=== PATIENT | female | born 1935 | race Caucasian/White ===

== ENCOUNTER 2016-10-16 15:00 | Outpatient (CLI) | payer MEDICARE, MEDICAID | END 2016-10-16 15:01 | disposition home or self-care (01) | DX: I10 Essential (primary) hypertension (principal); E03.9 Hypothyroidism, unspecified ==

== ENCOUNTER 2016-11-12 15:10 | Outpatient (CLI) | payer MEDICARE, MEDICAID | END 2016-11-12 15:11 | disposition home or self-care (01) | DX: R79.1 Abnormal coagulation profile (principal); R68.89 Other general symptoms and signs ==

== ENCOUNTER 2017-01-24 18:45 | Outpatient (CLI) | payer MEDICARE, MEDICAID ==
[2017-01-24 21:19] LABS: THYROID STIMULATING HORMONE 1.3 uIU/mL (0.34-5.60)
== END 2017-01-24 18:46 | disposition home or self-care (01) ==
LOC: LAB.R 18:45
DX: Z13.29 Encounter for screening for other suspected endocrine disorder (principal)
CPT/HCPCS: 84439; 84443

== ENCOUNTER 2017-08-13 08:00 | Outpatient (CLI) | payer MEDICARE, MEDICAID ==
[2017-08-13 16:45] LABS: HGB - HEMOGLOBIN 13.2 g/dL (12.0-16.0); MEAN CORPUSCULAR HEMOGLOBIN 27.9 pg (27.0-31.0); MEAN CORPUSCULAR HGB CONC 32.2 g/dL (32.0-36.0); MEAN CORPUSCULAR VOLUME 86.6 fL (81.0-99.0); MEAN PLATELET VOLUME 8.1 fL (7.9-10.8); RED BLOOD COUNT 4.75 10^6/uL (4.20-5.40); RED CELL DISTRIBUTION WIDTH 13.6 % (12.0-15.0); WHITE BLOOD COUNT 7.5 x10^3/uL (4.8-10.8)
[2017-08-13 16:51] LABS: CALCIUM 9.2 mg/dL (8.5-10.3); CREATININE 0.8 mg/dL (0.4-1.0)
== END 2017-08-13 08:01 | disposition home or self-care (01) ==
LOC: LAB.R 08:00
DX: E87.6 Hypokalemia (principal); E11.65 Type 2 diabetes mellitus with hyperglycemia
CPT/HCPCS: 80048

== ENCOUNTER 2018-01-12 16:50 | Outpatient (CLI) | payer MEDICARE, MEDICAID ==
[2018-01-12 19:49] LABS: BASOPHILS % (AUTO) 0.7 %; EOSINOPHILS # (AUTO) 0.2 10^3/uL (0.0-0.7); EOSINOPHILS % (AUTO) 2.9 %; HGB - HEMOGLOBIN 12.5 g/dL (12.0-16.0); LYMPHOCYTES # (AUTO) 1.4 10^3/uL (1.5-3.5); LYMPHOCYTES % (AUTO) 20.3 %; MEAN CORPUSCULAR HEMOGLOBIN 28.1 pg (27.0-31.0); MEAN CORPUSCULAR HGB CONC 32.4 g/dL (32.0-36.0); MEAN CORPUSCULAR VOLUME 86.5 fL (81.0-99.0); MEAN PLATELET VOLUME 8.2 fL (7.9-10.8); MONOCYTES # (AUTO) 0.5 10^3/uL (0.0-1.0); MONOCYTES % (AUTO) 6.7 %; NEUTROPHILS # (AUTO) 4.7 10^3/uL (1.5-6.6); NEUTROPHILS % (AUTO) 69.4 %; PLT - PLATELET COUNT 374 10^3/uL (130-450); RED BLOOD COUNT 4.44 10^6/uL (4.20-5.40); RED CELL DISTRIBUTION WIDTH 13.7 % (12.0-15.0); WHITE BLOOD COUNT 6.8 x10^3/uL (4.8-10.8)
[2018-01-12 19:54] LABS: ALBUMIN 3.9 g/dL (3.2-5.5); ALBUMIN/GLOBULIN RATIO 1.1 (1.0-2.2); BILIRUBIN,TOTAL 0.7 mg/dL (0.2-1.0); CALCIUM 9.1 mg/dL (8.5-10.3); CREATININE 0.9 mg/dL (0.4-1.0); TOTAL PROTEIN 7.3 g/dL (6.7-8.2)
[2018-01-12 20:11] LABS: HB2 TOTAL 13.2 g/dL; HEMOGLOBIN A1C 0.49 g/dL; HEMOGLOBIN A1C % 5.5 % (4.6-6.2)
== END 2018-01-12 16:51 | disposition home or self-care (01) ==
LOC: LAB.R 16:50
DX: I10 Essential (primary) hypertension (principal); E11.9 Type 2 diabetes mellitus without complications; E03.9 Hypothyroidism, unspecified
CPT/HCPCS: 80053; 83036; 84443; 85025

== ENCOUNTER 2018-06-12 14:25 | Outpatient (CLI) | payer MEDICARE, MEDICAID ==
[2018-06-12 15:17] LABS: BASOPHILS % (AUTO) 0.5 %; EOSINOPHILS # (AUTO) 0.1 10^3/uL (0.0-0.7); EOSINOPHILS % (AUTO) 1.7 %; HGB - HEMOGLOBIN 12.6 g/dL (12.0-16.0); LYMPHOCYTES # (AUTO) 1.1 10^3/uL (1.5-3.5); LYMPHOCYTES % (AUTO) 17.2 %; MEAN CORPUSCULAR HEMOGLOBIN 28.8 pg (27.0-31.0); MEAN CORPUSCULAR HGB CONC 34.1 g/dL (32.0-36.0); MEAN CORPUSCULAR VOLUME 84.7 fL (81.0-99.0); MEAN PLATELET VOLUME 8.2 fL (7.9-10.8); MONOCYTES # (AUTO) 0.4 10^3/uL (0.0-1.0); MONOCYTES % (AUTO) 5.8 %; NEUTROPHILS # (AUTO) 4.8 10^3/uL (1.5-6.6); NEUTROPHILS % (AUTO) 74.8 %; PLT - PLATELET COUNT 335 10^3/uL (130-450); RED BLOOD COUNT 4.38 10^6/uL (4.20-5.40); RED CELL DISTRIBUTION WIDTH 14.1 % (12.0-15.0); WHITE BLOOD COUNT 6.4 x10^3/uL (4.8-10.8)
[2018-06-12 15:36] LABS: CREATININE 0.8 mg/dL (0.4-1.0)
== END 2018-06-12 14:26 ==
LOC: LAB.R 14:25
DX: E87.6 Hypokalemia (principal); D50.8 Other iron deficiency anemias
CPT/HCPCS: 80048; 82728; 85025

== ENCOUNTER 2018-08-26 08:00 | Outpatient (CLI) | payer MEDICARE, MEDICAID ==
[2018-08-26 16:38] LABS: BASOPHILS % (AUTO) 0.6 %; EOSINOPHILS # (AUTO) 0.1 10^3/uL (0.0-0.7); EOSINOPHILS % (AUTO) 1.7 %; HGB - HEMOGLOBIN 12.9 g/dL (12.0-16.0); LYMPHOCYTES # (AUTO) 1.1 10^3/uL (1.5-3.5); LYMPHOCYTES % (AUTO) 14.8 %; MEAN CORPUSCULAR HEMOGLOBIN 28.4 pg (27.0-31.0); MONOCYTES # (AUTO) 0.5 10^3/uL (0.0-1.0); MONOCYTES % (AUTO) 6.2 %; NEUTROPHILS # (AUTO) 5.7 10^3/uL (1.5-6.6); NEUTROPHILS % (AUTO) 76.7 %; PLT - PLATELET COUNT 333 10^3/uL (130-450); RED BLOOD COUNT 4.55 10^6/uL (4.20-5.40); RED CELL DISTRIBUTION WIDTH 13.8 % (12.0-15.0); WHITE BLOOD COUNT 7.4 x10^3/uL (4.8-10.8)
== END 2018-08-26 23:59 | disposition home or self-care (01) ==
LOC: LAB.R 08:00
PROVIDERS: ATTEND Family Medicine
DX: E61.1 Iron deficiency (principal); R68.89 Other general symptoms and signs
CPT/HCPCS: 84443; 85025

== ENCOUNTER 2018-09-25 08:00 | Outpatient (CLI) | payer MEDICARE, MEDICAID | END 2018-09-25 23:59 | disposition home or self-care (01) | LOC: LAB.R 08:00 | DX: D50.9 Iron deficiency anemia, unspecified (principal) | CPT/HCPCS: 82728 ==

== ENCOUNTER 2018-12-21 08:00 | Outpatient (CLI) | payer MEDICARE, MEDICAID ==
[2018-12-21 18:04] LABS: CALCIUM 9.3 mg/dL (8.5-10.3); CREATININE 0.6 mg/dL (0.4-1.0)
== END 2018-12-21 23:59 | disposition home or self-care (01) ==
LOC: LAB.R 08:00
DX: F03.91 Unspecified dementia, unspecified severity, with behavioral disturbance (principal); E61.1 Iron deficiency
CPT/HCPCS: 80048; 82728

== ENCOUNTER 2019-04-08 16:26 | Outpatient (CLI) | payer MEDICARE, MEDICAID | END 2019-04-08 16:27 | disposition critical access hospital (66) | LOC: EMS 16:26 | PROVIDERS: ATTEND Surgery | DX: R21 Rash and other nonspecific skin eruption (principal) ==

== ENCOUNTER 2019-04-08 16:33 | Emergency (ER) | payer MEDICARE, MEDICAID ==
[2019-04-08] MEDS ORDERED: valACYclovir 500 MG TABLET PO STA (16:39)
--- NOTE | 2019-04-08 16:41 | ED Physician Documentation ---
History of Present Illness - Stated complaint Stated Complaint: FEM - History obtained from History obtained from: Patient, EMS (Most of the history is from the handoff from the correction and the paramedics. The patient is pretty demented.) - History of Present Illness Timing: Last night (Develops a somewhat painful rash in the left sided elsi-area and buttock. No reported fevers. She has a history of type 2 diabetes.) Review of Systems Unable to obtain: Confused, Dementia PD PAST MEDICAL HISTORY - Past Medical History Cardiovascular: Hypertension Endocrine/Autoimmune: Type 2 diabetes, HyPOthyroidism GI: GERD : Incontinence HEENT: None Psych: Anxiety Musculoskeletal: Osteoarthritis - Past Surgical History Past Surgical History: Yes - Present Medications Home Medications: Ambulatory Orders Medication Instructions Recorded Confirmed Aspirin 81 mg PO 07/08/13 01/04/15 Benazepril HCl 20 mg PO 07/08/13 01/04/15 Calcium Carbonate [Calcium] 500 mg PO 07/08/13 01/04/15 Citalopram [CeleXA] 20 mg PO DAILY 07/08/13 01/04/15 Gabapentin [Neurontin] 300 mg PO 07/08/13 01/04/15 HYDROcod/ACETAM 5/325 [Vicodin 1 each PO 07/08/13 01/04/15 5/325] Ibuprofen 200 mg PO 07/08/13 01/04/15 LORazepam [Ativan] 0.5 mg PO ONCE 07/08/13 01/04/15 Levothyroxine Sodium [Tirosint] 75 mcg PO 07/08/13 01/04/15 Lovastatin [Mevacor] 80 mg PO 07/08/13 01/04/15 Melatonin 3 mg PO 07/08/13 01/04/15 Olanzapine [Olanzapine Odt] 5 mg PO 07/08/13 01/04/15 Potassium Chloride 20 meq PO 07/08/13 01/04/15 traZODone [Desyrel] 50 mg PO HS 07/08/13 01/04/15 Valacyclovir HCl [Valtrex] 1,000 mg PO TID #30 tablet 04/08/19 - Allergies Allergies/Adverse Reactions: Allergies Allergy/AdvReac Type Severity Reaction Status Date / Time No Known Drug Allergies Allergy Verified 07/24/14 20:51 - Social History Does the pt smoke?: No Smoking Status: Never smoker Does the pt drink ETOH?: No Does the pt have substance abuse?: No - Immunizations Immunizations are current?: Yes - POLST Patient has POLST: Yes POLST Status: DNR PD ED PE NORMAL - Vitals Vital signs reviewed: Yes - General General: Other (She is oriented to person only) - Extremities Extremities: Other (She has a clear case of shingles that involves the left perirectal area and left labia) - Neuro Neuro: painter spray 2-12 intact Eye Opening: Spontaneous Motor: Obeys Commands Verbal: Confused GCS Score: 14 Results - Vitals Vitals: Oxygen O2 Source Room air Departure - Departure Disposition: Home, Self Care Clinical Impression: Shingles Qualifiers: Herpes zoster complications: without complications Qualified Code(s): B02.9 - Zoster without complications Condition: Good Record reviewed to determine appropriate education?: Yes Instructions: ED Shingles Prescriptions: Valacyclovir HCl [Valtrex] 1,000 mg PO TID #30 tablet Comments: She has a clear case of shingles on the left side. I am not giving her steroids because of the history of diabetes. The antiviral medication will help it go away faster. Return for new worsening symptoms.
[2019-04-08 16:55] VITALS: BP 138/76
== END 2019-04-08 16:53 | disposition home or self-care (01) ==
LOC: EDUNIT# → ED 16:33
DX: B02.9 Zoster without complications (principal); E11.9 Type 2 diabetes mellitus without complications; I10 Essential (primary) hypertension; F03.90 Unspecified dementia, unspecified severity, without behavioral disturbance, psychotic disturbance, mood disturbance, and anxiety
CPT/HCPCS: 99281; 99283; A9270

== ENCOUNTER 2019-04-08 16:50 | Outpatient (CLI) | payer MEDICARE, MEDICAID | END 2019-04-08 16:51 | disposition home or self-care (01) | LOC: EMS 16:50 | PROVIDERS: ATTEND Surgery | DX: B02.9 Zoster without complications (principal); F03.90 Unspecified dementia, unspecified severity, without behavioral disturbance, psychotic disturbance, mood disturbance, and anxiety | CPT/HCPCS: A0425; A0428; A0429 ==

== ENCOUNTER 2019-04-17 08:00 | Outpatient (CLI) | payer MEDICARE, MEDICAID ==
[2019-04-17 15:27] LABS: BILIRUBIN,URINE NEGATIVE (NEGATIVE); GLUCOSE, URINE (UA) NEGATIVE (NEGATIVE); KETONES,URINE (UA) NEGATIVE (NEGATIVE); LEUKOCYTE ESTERASE, URINE NEGATIVE (NEGATIVE); NITRITE,URINE NEGATIVE (NEGATIVE); OCCULT BLOOD,URINE NEGATIVE (NEGATIVE); PH,URINE 5.5 PH (5.0-7.5); PROTEIN,URINE NEGATIVE (NEGATIVE); UROBILINOGEN,URINE 0.2 (NORMAL) E.U./dL (NORMAL)
[2019-04-17 15:32] LABS: CLARITY,URINE CLEAR (CLEAR)
== END 2019-04-17 23:59 ==
LOC: LAB.R 08:00
PROVIDERS: ATTEND Family Medicine
DX: N39.0 Urinary tract infection, site not specified (principal)
CPT/HCPCS: 81001; 81003; 87086

== ENCOUNTER 2019-04-28 10:20 | Outpatient (CLI) | payer MEDICARE, MEDICAID ==
[2019-04-28 10:38] LABS: KETONES,URINE (UA) NEGATIVE (NEGATIVE); OCCULT BLOOD,URINE NEGATIVE (NEGATIVE)
[2019-04-28 10:49] LABS: BILIRUBIN,URINE NEGATIVE (NEGATIVE); CLARITY,URINE SL. CLOUDY (CLEAR); ICTOTEST,URINE NEGATIVE
[2019-04-28 10:50] LABS: BACTERIA,URINE Moderate /HPF (None Seen); RBC,URINE 0-5 /HPF (0-5); SQUAMOUS EPITHELIAL CELL,UR RARE Squamous (<= Few)
[2019-04-28 10:52] LABS: CASTS, URINE 6-10 Hyaline Casts /LPF
== END 2019-04-28 23:59 | disposition home or self-care (01) ==
LOC: LAB.R 10:20
DX: N39.0 Urinary tract infection, site not specified (principal)
CPT/HCPCS: 81001; 81003; 87086; 87181

== ENCOUNTER 2019-05-04 08:00 | Outpatient (CLI) | payer MEDICARE, MEDICAID ==
[2019-05-04 23:03] LABS: BASOPHILS % (AUTO) 0.4 %; EOSINOPHILS # (AUTO) 0.2 10^3/uL (0.0-0.7); EOSINOPHILS % (AUTO) 1.9 %; HGB - HEMOGLOBIN 12.6 g/dL (12.0-16.0); LYMPHOCYTES # (AUTO) 1.1 10^3/uL (1.5-3.5); LYMPHOCYTES % (AUTO) 12.8 %; MEAN CORPUSCULAR HGB CONC 31.9 g/dL (32.0-36.0); MEAN PLATELET VOLUME 10.3 fL (7.9-10.8); MONOCYTES # (AUTO) 0.8 10^3/uL (0.0-1.0); MONOCYTES % (AUTO) 9.3 %; NEUTROPHILS # (AUTO) 6.4 10^3/uL (1.5-6.6); NEUTROPHILS % (AUTO) 75.2 %; PLT - PLATELET COUNT 275 10^3/uL (130-450); RED BLOOD COUNT 4.34 10^6/uL (4.20-5.40); RED CELL DISTRIBUTION WIDTH 14.3 % (12.0-15.0); WHITE BLOOD COUNT 8.5 x10^3/uL (4.8-10.8)
[2019-05-04 23:14] LABS: ALBUMIN 3.8 g/dL (3.2-5.5); ALBUMIN/GLOBULIN RATIO 1.4 (1.0-2.2); BILIRUBIN,TOTAL 1.9 mg/dL (0.2-1.0); CALCIUM 9.2 mg/dL (8.5-10.3); CREATININE 1.5 mg/dL (0.4-1.0); TOTAL PROTEIN 6.5 g/dL (6.7-8.2)
== END 2019-05-04 23:59 | disposition home or self-care (01) ==
LOC: LAB.R 08:00
PROVIDERS: ATTEND Family Medicine
DX: E61.1 Iron deficiency (principal); E87.6 Hypokalemia
CPT/HCPCS: 80053; 85025

== ENCOUNTER 2019-05-08 10:29 | Outpatient (CLI) | payer MEDICARE, MEDICAID | END 2019-05-08 10:30 | disposition critical access hospital (66) | LOC: EMS 10:29 | PROVIDERS: ATTEND Surgery | DX: R41.0 Disorientation, unspecified (principal); K92.0 Hematemesis; K92.1 Melena | CPT/HCPCS: A0425; A0429 ==

== ENCOUNTER 2019-05-08 10:34 | Observation (INO) | payer MEDICARE, MEDICAID ==
--- NOTE | 2019-05-08 11:15 | ED Physician Documentation ---
PD HPI GI BLEED - Stated complaint Stated Complaint: INCREASED CONFUSION - Chief complaint Chief Complaint: Neuro - History obtained from History obtained from: Patient - History of Present Illness Timing - onset: Yesterday Timing - duration: Days (08/02) Timing - details: Abrupt onset (Noted yesterday to have vomiting a couple of times with some coffee-ground type appearance. She also had bowel movement of dark stool yesterday and again overnight. She seemed more confused and sleepier than usual. No fever or belly pain was noted on the nursing notes. Her [facility] notes that came with her show a recent positive urine culture from May 01 but no antibiotics on her SEP.) Associated symptoms: Coffee ground emesis, Black/tarry stool Contributing factors: No: Recent antibiotics, NSAID use, Anticoagulated Similar symptoms before: Has not had sx before Review of Systems Unable to obtain: Dementia, Other (info from [facility] notes) Constitutional: denies: Fever Cardiac: denies: Chest pain / pressure Respiratory: denies: Cough GI: reports: Hematemesis, Bloody / black stool. denies: Abdominal Pain : reports: Incontinent Neurologic: reports: Generalized weakness, Confused, Altered mental status (sleepy this morning; more confused) PD PAST MEDICAL HISTORY - Past Medical History Cardiovascular: Hypertension Endocrine/Autoimmune: Type 2 diabetes, HyPOthyroidism GI: GERD : Incontinence HEENT: None Psych: Anxiety Musculoskeletal: Osteoarthritis - Past Surgical History Past Surgical History: Yes - Present Medications Home Medications: Ambulatory Orders Medication Instructions Recorded Confirmed Aspirin 81 mg PO 07/08/13 01/04/15 Benazepril HCl 20 mg PO 07/08/13 01/04/15 Calcium Carbonate [Calcium] 500 mg PO 07/08/13 01/04/15 Citalopram [CeleXA] 20 mg PO DAILY 07/08/13 01/04/15 Gabapentin [Neurontin] 300 mg PO 07/08/13 01/04/15 HYDROcod/ACETAM 5/325 [Vicodin 1 each PO 07/08/13 01/04/15 5/325] Ibuprofen 200 mg PO 07/08/13 01/04/15 LORazepam [Ativan] 0.5 mg PO ONCE 07/08/13 01/04/15 Levothyroxine Sodium [Tirosint] 75 mcg PO 07/08/13 01/04/15 Lovastatin [Mevacor] 80 mg PO 07/08/13 01/04/15 Melatonin 3 mg PO 07/08/13 01/04/15 Olanzapine [Olanzapine Odt] 5 mg PO 07/08/13 01/04/15 Potassium Chloride 20 meq PO 07/08/13 01/04/15 traZODone [Desyrel] 50 mg PO HS 07/08/13 01/04/15 Valacyclovir HCl [Valtrex] 1,000 mg PO TID #30 tablet 04/08/19 - Allergies Allergies/Adverse Reactions: Allergies Allergy/AdvReac Type Severity Reaction Status Date / Time No Known Drug Allergies Allergy Verified 07/24/14 20:51 - Social History Does the pt smoke?: No Smoking Status: Never smoker Does the pt drink ETOH?: No Does the pt have substance abuse?: No - Immunizations Immunizations are current?: Yes - POLST Patient has POLST: Yes POLST Status: DNR PD ED PE NORMAL - Vitals Vital signs reviewed: Yes - General General: No acute distress, Well developed/nourished. No: Alert and oriented X 3 (oriented to person, sleepy but rousable to verbal and light tactile. ) - HEENT HEENT: Pharynx benign. No: Moist mucous membranes - Neck Neck: Supple, no meningeal sign, No adenopathy - Cardiac Cardiac: RRR, No murmur - Respiratory Respiratory: Clear bilaterally - Abdomen Abdomen: Normal bowel sounds, Soft, Non tender, Non distended - Female Female : Deferred - Rectal Rectal: Other (there is dark stool at anus externally which tests guiac positive. ) - Back Back: No CVA TTP - Derm Derm: Normal color, Warm and dry - Extremities Extremities: No tenderness to palpate, No edema, No calf tenderness / cord - Neuro Neuro: Alert and oriented X 3, No motor deficit, Normal speech Eye Opening: To Voice Motor: Obeys Commands Verbal: Confused GCS Score: 13 Results - Vitals Vitals: Vital Signs - 24 hr 05/08/19 05/08/19 05/08/19 10:30 10:57 12:58 Temperature 36.4 C L 36.3 C L Heart Rate 64 66 65 Respiratory 14 14 16 Rate Blood Pressure 102/60 106/59 L 133/62 H O2 Saturation 97 97 98 Oxygen O2 Source Room air - Labs Labs: Laboratory Tests 05/08/19 05/08/19 05/08/19 11:55 11:55 11:55 WBC 9.7 RBC 4.33 Hgb 12.7 Hct 39.7 MCV 91.7 MCH 29.3 MCHC 32.0 RDW 14.2 Plt Count 286 MPV 10.1 Neut # (Auto) 7.9 H Lymph # (Auto) 0.9 L [place] # (Auto) 0.7 Eos # (Auto) 0.1 Baso # (Auto) 0.1 Absolute Nucleated RBC 0.00 Nucleated RBC % 0.0 Sodium 141 Potassium 4.0 Chloride 103 Carbon Dioxide 27 Anion Gap 11.0 BUN 35 H Creatinine 1.1 H Estimated GFR (MDRD) 47 L Glucose 85 Lactic Acid Calcium 9.2 Magnesium 2.2 Total Bilirubin 1.7 H AST 19 ALT 26 Alkaline Phosphatase 61 Ammonia Total Protein 6.5 L Albumin 3.6 Globulin 2.9 Albumin/Globulin Ratio 1.2 Lipase 46 Blood Type B NEGATIVE Antibody Screen NEGATIVE 05/08/19 05/08/19 11:55 11:55 WBC RBC Hgb Hct MCV MCH MCHC RDW Plt Count MPV Neut # (Auto) Lymph # (Auto) [place] # (Auto) Eos # (Auto) Baso # (Auto) Absolute Nucleated RBC Nucleated RBC % Sodium Potassium Chloride Carbon Dioxide Anion Gap BUN Creatinine Estimated GFR (MDRD) Glucose Lactic Acid 1.0 Calcium Magnesium Total Bilirubin AST ALT Alkaline Phosphatase Ammonia < 10.0 Total Protein Albumin Globulin Albumin/Globulin Ratio Lipase Blood Type Antibody Screen PD MEDICAL DECISION MAKING - ED course Complexity details: reviewed results (Blood count is good. Her blood pressure was initially slightly low at 102 systolic and is improved with IV fluids. She is given famotidine IV. She does not have any belly tenderness. She had had a untreated UTI from a culture on the first without any antibiotics on her SEP. We will start ceftriaxone IV.), re-evaluated patient (She is more easily arousable and attentive though still confused and disoriented consistent with dementia after IV fluids. She does seem stable.), considered differential, d/w patient Departure - Departure Disposition: [facility] DC/Xfer Clinical Impression: Altered mental status Qualifiers: Altered mental status type: somnolence Qualified Code(s): R40.0 - Somnolence UTI (urinary tract infection) Qualifiers: Urinary tract infection type: acute cystitis Hematuria presence: without hematuria Qualified Code(s): N30.00 - Acute cystitis without hematuria GI bleed Qualifiers: GI bleed type/associated pathology: unspecified gastrointestinal hemorrhage type Qualified Code(s): K92.2 - Gastrointestinal hemorrhage, unspecified Condition: Stable Record reviewed to determine appropriate education?: Yes
[2019-05-08] MEDS ORDERED: SODIUM CHLORIDE 0.9% 1,000 ML IV ONE (11:36)
[2019-05-08] MEDS ORDERED: FAMOTIDINE 20 MG/2 ML VIAL IVP STA (11:37)
[2019-05-08 12:06] LABS: BASOPHILS # (AUTO) 0.1 10^3/uL (0.0-0.1); BASOPHILS % (AUTO) 0.5 %; EOSINOPHILS # (AUTO) 0.1 10^3/uL (0.0-0.7); EOSINOPHILS % (AUTO) 1.2 %; HGB - HEMOGLOBIN 12.7 g/dL (12.0-16.0); LYMPHOCYTES # (AUTO) 0.9 10^3/uL (1.5-3.5); LYMPHOCYTES % (AUTO) 9.4 %; MEAN CORPUSCULAR HEMOGLOBIN 29.3 pg (27.0-31.0); MEAN CORPUSCULAR VOLUME 91.7 fL (81.0-99.0); MEAN PLATELET VOLUME 10.1 fL (7.9-10.8); MONOCYTES # (AUTO) 0.7 10^3/uL (0.0-1.0); MONOCYTES % (AUTO) 6.7 %; NEUTROPHILS # (AUTO) 7.9 10^3/uL (1.5-6.6); NEUTROPHILS % (AUTO) 81.7 %; PLT - PLATELET COUNT 286 10^3/uL (130-450); RED BLOOD COUNT 4.33 10^6/uL (4.20-5.40); RED CELL DISTRIBUTION WIDTH 14.2 % (12.0-15.0); WHITE BLOOD COUNT 9.7 x10^3/uL (4.8-10.8)
[2019-05-08 12:20] LABS: ALBUMIN 3.6 g/dL (3.2-5.5); ALBUMIN/GLOBULIN RATIO 1.2 (1.0-2.2); BILIRUBIN,TOTAL 1.7 mg/dL (0.2-1.0); CALCIUM 9.2 mg/dL (8.5-10.3); CREATININE 1.1 mg/dL (0.4-1.0); MAGNESIUM 2.2 mg/dL (1.7-2.8); TOTAL PROTEIN 6.5 g/dL (6.7-8.2)
[2019-05-08] MEDS ORDERED: cefTRIAXone 1 GM VIAL IVP STA (12:40)
[2019-05-08] MEDS ORDERED: ONDANSETRON 4 MG/2 ML VIAL IVP PRN (14:20)
[2019-05-08] MEDS ORDERED: ACETAMINOPHEN 325 MG TABLET PO PRN (14:20)
[2019-05-08] MEDS ORDERED: LORazepam 1 MG TABLET PO STA (14:46)
[2019-05-08] MEDS ORDERED: HALOPERIDOL 5 MG/ML VIAL IM ONE (15:10)
--- NOTE | 2019-05-08 15:23 | HISTORY & PHYSICAL EXAMINATION ---
Chief Complaint - Chief Complaint Chief Complaint: AMS/confused History of Present Illness - History of Present Illness HPI Comment/Other: Ms. Carballo is 83 yrs female with a PMH significant for advanced dementia, HTN, hypothyroidism, GERD, incontinency, anxiety, osteoarthritis, who present ER from [facility] for confused and altered mental status. Pt is still very confused and agitated. pt pulled her IV port twice in ER. pt could not provide any medical history. From ER provider provider information, yesterday in [facility] pt had an abrupt onset vomiting of some coffee-ground type appearance residence and She also had bowel movement of dark stool overnight. She was reported to have seemed more confused and sleepier than usual. Per ER provider reported, from pt's [facility] notes which came with her it shows pt had a recent positive urine culture of Ecoli on 04/28/19 but pt had no antibiotics on her SEP. Pt's HGB is 12.7 now and It has been stable since 2016. Pt denies chest pain, abdominal pain " I do not need any medication, and I am fine." Initially pt's BP was 102/60, now she is hemodynamic stable. I called Dr. Janusz Milan to consult for pt's GI bleed. Per Dr. Milan's suggestion, since pt's HGB is stable, pt took Aspirin, and pt is advanced dementia, confused, let's treat pt for gastric ulcer with PPI, continue H&H to monitor pt, will consult with him as needed. Pt had PLOST which stated pt is DNR/DNI and comfortable measure only status. pt's UA is pending, pt had elevated BUN at 35 and slight elevated creatinine at 1.1. pt is admitted in observation unit for further management. 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 : reports: Incontinence HEENT: reports: None Psych: reports: Anxiety Musculoskeletal: reports: Osteoarthritis Derm: reports: None MRSA Hx?: No - Family & Social History Family History Comment/Other: pt is very confused, and agitated , she could not provider any family and social hx - POLST Patient has POLST: Yes POLST Status: DNR Meds/Allgy - Home Medications Home Medications: Ambulatory Orders Medication Instructions Recorded Confirmed Aspirin 81 mg PO 07/08/13 01/04/15 Benazepril HCl 20 mg PO 07/08/13 01/04/15 Calcium Carbonate [Calcium] 500 mg PO 07/08/13 01/04/15 Citalopram [CeleXA] 20 mg PO DAILY 07/08/13 01/04/15 Gabapentin [Neurontin] 300 mg PO 07/08/13 01/04/15 HYDROcod/ACETAM 5/325 [Vicodin 1 each PO 07/08/13 01/04/15 5/325] Ibuprofen 200 mg PO 07/08/13 01/04/15 LORazepam [Ativan] 0.5 mg PO ONCE 07/08/13 01/04/15 Levothyroxine Sodium [Tirosint] 75 mcg PO 07/08/13 01/04/15 Lovastatin [Mevacor] 80 mg PO 07/08/13 01/04/15 Melatonin 3 mg PO 07/08/13 01/04/15 Olanzapine [Olanzapine Odt] 5 mg PO 07/08/13 01/04/15 Potassium Chloride 20 meq PO DAILY 07/08/13 01/04/15 traZODone [Desyrel] 50 mg PO HS 07/08/13 01/04/15 Valacyclovir HCl [Valtrex] 1,000 mg PO TID #30 tablet 04/08/19 - Allergies Allergies/Adverse Reactions: Allergies Allergy/AdvReac Type Severity Reaction Status Date / Time No Known Drug Allergies Allergy Verified 07/24/14 20:51 Review of Systems - Constitutional Constitutional: denies: Fever, Chills - Cardiovascular Cariovascular: denies: Chest pain - Respiratory Respiratory: denies: Cough, SOB at rest, SOB with exertion - Gastrointestinal Gastrointestinal: reports: Black stools, Coffee grounds emesis. denies: Abdominal pain - Other Findings Other Findings: pt is very confused, and agitated, she was not willing and could not answer all her ROS Exam - Vital Signs Reviewed Vital Signs: Yes Vital Signs: Vital Signs x48h Temp Pulse Resp BP Pulse Ox 05/08/19 12:58 65 16 133/62 H 98 05/08/19 10:57 36.3 C L 66 14 106/59 L 97 05/08/19 10:30 36.4 C L 64 14 102/60 97 - Physical Exam General Appearance: positive: Alert, Anxious. negative: Lethargic Eyes Bilateral: positive: Normal inspection, PERRL, No lid inflammation ENT: positive: ENT inspection nml, No signs of dehydration. negative: Purulent nasal drainage Neck: positive: Nml inspection, Thyroid nml, Trachea midline. negative: Thyromegaly, Lymphadenopathy (R), Lymphadenopathy (L), Tracheal deviation Respiratory: positive: No respiratory distress, Breath sounds nml Cardiovascular: positive: Regular rate & rhythm, No murmur. negative: Tachycardia, Bradycardia, Systolic murmur Peripheral Pulses: positive: 2+ Abdomen: positive: Non-tender, No organomegaly, Nml bowel sounds, No distention. negative: Tenderness, Guarding, Rebound Skin: positive: Color nml, No rash, Warm, Dry. negative: Cyanosis, Diaphoresis, Pallor Extremities: positive: Non-tender, Full ROM, Nml appearance. negative: Calf tenderness, Joint swelling, Bogdan's sign/cords Neurologic/Psychiatric: negative: Weakness, Sensory loss, Facial droop, Slurred/abnml speech Sepsis Event Note (H) - Evaluation Current Stage of Sepsis: Ruled out Conclusion/Plan - Problem List (1) Altered mental status Conclusion/Plan: Unknown pt's baseline of mental status, beside of pt's hx of advanced dementia. Ammonia level is normal checked by ER. It is unknown etiology for pt's AMS. UA culture was positive for Ecoli on 04/28/19 on [facility], per ER provider's report, pt was not treated with antibiotics, it can contribute for pt's confused/AMS. order CT of head for pt, will followup neuro check for pt hold sedative meds as possible treat with Rocephin for pt's UTI start with IV of PPI bid Qualifiers: Altered mental status type: somnolence Qualified Code(s): R40.0 - Somnolence (2) Upper GI bleed Conclusion/Plan: pt was reported to have hematemesis and black stool in [facility]. but pt has stable HGB. pt had Aspirin at her home meds. check H&H, will consult with GI surgeon as needed hold Aspirin NPO after midnight in case pt need EGD IVF of NS (3) UTI (urinary tract infection) Conclusion/Plan: today UA is pending. pt had positive UA culture on 04/28/19 for Ecoli. pt was not treated with antibiotics per ER provider's report. started with Rocephin Qualifiers: Urinary tract infection type: acute cystitis Hematuria presence: without hematuria Qualified Code(s): N30.00 - Acute cystitis without hematuria (4) Dehydration Conclusion/Plan: pt has slight elevated creatinine, but pt has more elevated BUN. It indicate pt might have gastric ulcer with blood in the stomach hydration with IV of NS lab monitor (5) Hypothyroidism Conclusion/Plan: will resume home meds, check TSH (6) HTN (hypertension) Conclusion/Plan: stable now, will resume home BP meds after verification by pharmacy (7) Dementia Conclusion/Plan: pt has hx of dementia, now she is agitated. pt has no home meds for dementia. haldol once for her agitation, soft restrain every Q24H to recheck continue support with staffs - Lab Results Fish Bones: 05/08/19 11:55 05/08/19 11:55 Core Measures - Anticipated LOS I expect patient to be DC'd or transferred within 96 hours.: Yes - DVT/VTE - Prophylaxis VTE/DVT Device ordered at admit?: Yes VTE/DVT Prophylaxis med ordered at admit?: Yes
--- NOTE | 2019-05-08 17:12 | CT Report ---
Reason: AMS Procedure Date: 05/08/2019 Accession Number: [id number] / [id number] Procedure: CT - HEAD WO CPT Code: FULL RESULT: EXAM: CT HEAD EXAM DATE: 05/08/2019 04:52 PM. CLINICAL HISTORY: Altered mental status COMPARISON: MRI BRAIN 06/27/2012 2:28 PM. TECHNIQUE: Multiaxial CT images were obtained from the foramen magnum to the vertex. Reformats: Sagittal and coronal. IV contrast: None. In accordance with CT protocol optimization, one or more of the following dose reduction techniques were utilized for this exam: automated exposure control, adjustment of mA and/or KV based on patient size, or use of iterative reconstructive technique. FINDINGS: Parenchyma: No intraparenchymal hemorrhage. No evidence of mass, midline shift, or CT findings of acute infarction. Moreno-white differentiation is distinct. Diffuse chronic microangiopathic white matter changes are evident. Extraaxial Spaces: Normal for age. No subdural or epidural collections identified. Ventricles: The ventricles and cortical sulci are enlarged, consistent with age-related tissue loss. Sinuses and orbits: Imaged paranasal sinuses, orbits, and mastoids show no significant abnormality. Bones: No evidence of fracture or calvarial defect. Other: None. IMPRESSION: Generalized age-related cortical atrophic changes without evidence of acute intracranial abnormality. [facility]
[2019-05-08] MEDS: SODIUM CHLORIDE 0.9% 1,000 ML IV SCH (17:38)
[2019-05-08] MEDS: SODIUM CHLORIDE FLUSH 0.9% 10 ML SYRINGE IVP SCH (17:41)
[2019-05-08 19:16] LABS: BILIRUBIN,URINE NEGATIVE (NEGATIVE); GLUCOSE, URINE (UA) NEGATIVE (NEGATIVE); KETONES,URINE (UA) TRACE mg/dL (NEGATIVE); LEUKOCYTE ESTERASE, URINE NEGATIVE (NEGATIVE); NITRITE,URINE NEGATIVE (NEGATIVE); OCCULT BLOOD,URINE NEGATIVE (NEGATIVE); PH,URINE 5.5 PH (5.0-7.5); PROTEIN,URINE NEGATIVE (NEGATIVE); UROBILINOGEN,URINE 0.2 (NORMAL) E.U./dL (NORMAL)
[2019-05-08 19:19] LABS: CLARITY,URINE CLEAR (CLEAR)
[2019-05-08] MEDS: PANTOPRAZOLE 40 MG VIAL IVP SCH (21:33)
[2019-05-08] MEDS ORDERED: LORazepam 2 MG/ML VIAL IVP SCH (22:00)
[2019-05-09] MEDS: SODIUM CHLORIDE FLUSH 0.9% 10 ML SYRINGE IVP SCH ×3 (00:15→16:30)
[2019-05-09] MEDS: SODIUM CHLORIDE 0.9% 1,000 ML IV SCH ×2 (03:45→18:00)
[2019-05-09 05:36] LABS: BASOPHILS # (AUTO) 0.1 10^3/uL (0.0-0.1); BASOPHILS % (AUTO) 0.7 %; EOSINOPHILS # (AUTO) 0.2 10^3/uL (0.0-0.7); EOSINOPHILS % (AUTO) 2.6 %; HGB - HEMOGLOBIN 11.1 g/dL (12.0-16.0); LYMPHOCYTES % (AUTO) 13.8 %; MEAN CORPUSCULAR HEMOGLOBIN 29.3 pg (27.0-31.0); MEAN CORPUSCULAR HGB CONC 31.7 g/dL (32.0-36.0); MEAN CORPUSCULAR VOLUME 92.3 fL (81.0-99.0); MEAN PLATELET VOLUME 10.3 fL (7.9-10.8); MONOCYTES # (AUTO) 0.6 10^3/uL (0.0-1.0); MONOCYTES % (AUTO) 8.5 %; NEUTROPHILS # (AUTO) 5.5 10^3/uL (1.5-6.6); NEUTROPHILS % (AUTO) 74.1 %; PLT - PLATELET COUNT 247 10^3/uL (130-450); RED BLOOD COUNT 3.79 10^6/uL (4.20-5.40); WHITE BLOOD COUNT 7.4 x10^3/uL (4.8-10.8)
[2019-05-09 05:52] LABS: ALBUMIN 2.9 g/dL (3.2-5.5); ALBUMIN/GLOBULIN RATIO 1.3 (1.0-2.2); CALCIUM 8.1 mg/dL (8.5-10.3); CREATININE 0.8 mg/dL (0.4-1.0); TOTAL PROTEIN 5.2 g/dL (6.7-8.2)
[2019-05-09 05:54] LABS: HB2 TOTAL 11.4 g/dL; HEMOGLOBIN A1C 0.4 g/dL; HEMOGLOBIN A1C % 5.4 % (4.6-6.2)
[2019-05-09] MEDS: LEVOTHYROXINE 75 MCG TABLET PO SCH (05:56)
[2019-05-09] MEDS ORDERED: POTASSIUM CHLORIDE INJ 40 MEQ in SODIUM CHLORIDE 0.9% 480 ML IV ONE (07:57)
[2019-05-09] MEDS ORDERED: POTASSIUM CHLORIDE 20 MEQ TABLET PO ONE (08:06)
[2019-05-09] MEDS ORDERED: diphenhydrAMINE 25 MG CAPSULE PO PRN (08:58)
[2019-05-09] MEDS ORDERED: cefTRIAXone 1 GM VIAL IV SCH (09:00)
[2019-05-09] MEDS: cefTRIAXone 1 GM in SODIUM CHLORIDE 0.9% MINIBAG 100 ML IV SCH (09:36)
[2019-05-09] MEDS: POLYETHYLENE GLYCOL 3350 17 GM PACKET PO SCH ×2 (09:37→14:08)
[2019-05-09] MEDS: PANTOPRAZOLE 40 MG VIAL IVP SCH ×2 (09:37→20:40)
[2019-05-09] MEDS: LISINOPRIL 20 MG TABLET PO SCH (09:37)
[2019-05-09] MEDS: SODIUM CHLORIDE FLUSH 0.9% 10 ML SYRINGE IVP PRN ×2 (10:46→20:40)
[2019-05-09 11:23] LABS: HGB - HEMOGLOBIN 12.4 g/dL (12.0-16.0)
--- NOTE | 2019-05-09 17:09 | PROVIDER PROGRESS NOTE ---
Subjective - Prog Note Date Prog Note Date: 05/09/19 - Subjective Pt reports feeling: Improved Subjective: pt's mental status is better. nurse report pt is off soft restrain. pt's HGB is slight going down, it can be dilated. pt has no nausea or vomiting or black stool any more. Current Medications - Current Medications Current Medications: Active Medications Acetaminophen (Tylenol) 650 mg PO Q4HR PRN PRN Reason: Pain 1 to 4 Last Admin: 05/09/19 00:19 Dose: 650 mg Diphenhydramine HCl (Benadryl) 25 mg PO Q4HR PRN PRN Reason: Allergy Symptoms Ceftriaxone Sodium 1 gm/ (Sodium Chloride) 100 mls @ 200 mls/hr IV DAILY [facility] Last Infusion: 05/09/19 10:48 Dose: Infused Levothyroxine Sodium (Synthroid) 75 mcg PO QDAC [facility] Last Admin: 05/09/19 05:56 Dose: 75 mcg Lisinopril (Zestril) 20 mg PO DAILY [facility] Last Admin: 05/09/19 09:37 Dose: 20 mg Ondansetron HCl (Zofran Inj) 4 mg IVP Q6HR PRN PRN Reason: Nausea / Vomiting Pantoprazole Sodium (Protonix) 40 mg IVP BID [facility] Last Admin: 05/09/19 09:37 Dose: 40 mg Polyethylene Glycol (Miralax) 17 gm PO DAILY [facility] Last Admin: 05/09/19 14:08 Dose: Not Given Sodium Chloride (Normal Saline Flush 0.9%) 10 ml IVP PRN PRN PRN Reason: NEEDED PER PROVIDER ORDERS Last Admin: 05/09/19 10:46 Dose: 10 ml Sodium Chloride (Normal Saline Flush 0.9%) 10 ml IVP 0100,0900,1700 [facility] Last Admin: 05/09/19 16:30 Dose: 10 ml Aspirin 81 mg PO 07/08/13 Benazepril HCl 20 mg PO 07/08/13 Calcium Carbonate [Calcium] 500 mg PO 07/08/13 Citalopram [CeleXA] 20 mg PO DAILY 07/08/13 Gabapentin [Neurontin] 300 mg PO 07/08/13 HYDROcod/ACETAM 5/325 [Vicodin 5/325] 1 each PO 07/08/13 Ibuprofen 200 mg PO 12/08/13 LORazepam [Ativan] 0.5 mg PO ONCE 07/08/13 Levothyroxine Sodium [Tirosint] 75 mcg PO QDAC 07/08/13 Lovastatin [Mevacor] 80 mg PO 07/08/13 Melatonin 3 mg PO 07/08/13 Olanzapine [Olanzapine Odt] 5 mg PO 07/08/13 traZODone [Desyrel] 50 mg PO HS 07/08/13 Ferrous Gluconate 240 mg PO DAILY 05/09/19 Multivitamin W/Minerals [Theragran M] 1 tab PO DAILY 05/09/19 Potassium Chloride 20 meq PO DAILY 05/09/19 Prazosin HCl 2 mg PO DAILY 05/09/19 QUEtiapine [SEROquel] 25 mg PO DAILY PRN 05/09/19 Tramadol HCl 25 mg PO DAILY 05/09/19 Objective - Vital Signs/Intake & Output Reviewed Vital Signs: Yes Vital Signs: Vital Signs x48h Temp Pulse Resp BP Pulse Ox 05/09/19 15:26 36.5 C 60 18 134/51 H 100 05/09/19 11:52 36.4 C L 71 18 139/60 H 97 Intake & Output: Intake & Output 05/06/19 05/07/19 05/08/19 05/09/19 23:59 23:59 23:59 23:59 Intake Total 1540 1473.333 Output Total 500 550 Balance 1040 923.333 - Objective General Appearance: positive: No acute distress, Alert. negative: Lethargic Eyes Bilateral: positive: Normal inspection, PERRL, No lid inflammation, Conjunctivae nml ENT: positive: ENT inspection nml, Pharynx nml, No signs of dehydration. negative: Purulent nasal drainage, Pharyngeal erythema, Oral lesions Neck: positive: Nml inspection, Thyroid nml, No JVD, Trachea midline. negative: Thyromegaly, Lymphadenopathy (R), Lymphadenopathy (L), Stiff neck, Swelling/bruising, Tracheal deviation Respiratory: positive: Chest non-tender, No respiratory distress, Breath sounds nml. negative: Wheezes, Rales, Rhonchi Cardiovascular: positive: Regular rate & rhythm, No murmur, No gallop. negative: Irregularly irregular, Extrasystoles, Tachycardia, Bradycardia, JVD present, Systolic murmur, Diastolic murmur Peripheral Pulses: 2+ Radial (R), 2+ Radial (L), 2+ Dorsalis pedis (R), 2+ Dorsalis pedis (L) Abdomen: positive: Non-tender, No organomegaly, Nml bowel sounds, No distention. negative: Tenderness, Guarding, Rebound Back: positive: Nml inspection. negative: CVA tenderness (R), CVA tenderness (L) Skin: positive: Color nml, No rash, Warm, Dry. negative: Cyanosis, Diaphoresis, Pallor Extremities: positive: Non-tender, Full ROM, Nml appearance. negative: Calf tenderness, Joint swelling, Bogdan's sign/cords Neurologic/Psychiatric: positive: Sensation nml. negative: Weakness, Sensory loss, Facial droop, Slurred/abnml speech, Depressed mood/affect - Lab Results Fish Bones: 05/09/19 11:15 05/09/19 05:05 Other Labs: Lab Results x24hrs 05/09/19 05/09/19 05/09/19 Range/Units 11:15 05:05 05:05 WBC (4.8-10.8) x10^3/uL RBC (4.20-5.40) 10^6/uL Hgb 12.4 (12.0-16.0) g/dL Hct 39.2 (37.0-47.0) % MCV (81.0-99.0) fL MCH (27.0-31.0) pg MCHC (32.0-36.0) g/dL RDW (12.0-15.0) % Plt Count (130-450) 10^3/uL MPV (7.9-10.8) fL Neut # (Auto) (1.5-6.6) 10^3/uL Lymph # (Auto) (1.5-3.5) 10^3/uL [place] # (Auto) (0.0-1.0) 10^3/uL Eos # (Auto) (0.0-0.7) 10^3/uL Baso # (Auto) (0.0-0.1) 10^3/uL Absolute Nucleated RBC x10^3/uL Nucleated RBC % /100WBC Sodium (135-145) mmol/L Potassium (3.5-5.0) mmol/L Chloride (101-111) mmol/L Carbon Dioxide (21-32) mmol/L Anion Gap (6-13) BUN (6-20) mg/dL Creatinine (0.4-1.0) mg/dL Estimated GFR (MDRD) (>89) Glucose (70-100) mg/dL Glycated Hemoglobin 5.4 (4.6-6.2) % Estim Average Glucose 108 H (70-100) Calcium (8.5-10.3) mg/dL Total Bilirubin (0.2-1.0) mg/dL AST (10-42) IU/L ALT (10-60) IU/L Alkaline Phosphatase (42-121) IU/L Total Protein (6.7-8.2) g/dL Albumin (3.2-5.5) g/dL Globulin (2.1-4.2) g/dL Albumin/Globulin Ratio (1.0-2.2) TSH 1.30 (0.34-5.60) uIU/mL Urine Color Urine Clarity (CLEAR) Urine pH (5.0-7.5) PH Ur Specific [place] (1.002-1.030) Urine Protein (NEGATIVE) mg/dL Urine Glucose (UA) (NEGATIVE) mg/dL Urine Ketones (NEGATIVE) mg/dL Urine Occult Blood (NEGATIVE) Urine Nitrite (NEGATIVE) Urine Bilirubin (NEGATIVE) Urine Urobilinogen (NORMAL) E.U./dL Ur Leukocyte Esterase (NEGATIVE) Ur Microscopic Review Urine Culture Comments 05/09/19 05/09/19 05/08/19 Range/Units 05:05 05:05 20:17 WBC 7.4 (4.8-10.8) x10^3/uL RBC 3.79 L (4.20-5.40) 10^6/uL Hgb 11.1 L 12.0 (12.0-16.0) g/dL Hct 35.0 L 38.1 (37.0-47.0) % MCV 92.3 (81.0-99.0) fL MCH 29.3 (27.0-31.0) pg MCHC 31.7 L (32.0-36.0) g/dL RDW 14.0 (12.0-15.0) % Plt Count 247 (130-450) 10^3/uL MPV 10.3 (7.9-10.8) fL Neut # (Auto) 5.5 (1.5-6.6) 10^3/uL Lymph # (Auto) 1.0 L (1.5-3.5) 10^3/uL [place] # (Auto) 0.6 (0.0-1.0) 10^3/uL Eos # (Auto) 0.2 (0.0-0.7) 10^3/uL Baso # (Auto) 0.1 (0.0-0.1) 10^3/uL Absolute Nucleated RBC 0.00 x10^3/uL Nucleated RBC % 0.0 /100WBC Sodium 140 (135-145) mmol/L Potassium 3.2 L (3.5-5.0) mmol/L Chloride 107 (101-111) mmol/L Carbon Dioxide 25 (21-32) mmol/L Anion Gap 8.0 (6-13) BUN 22 H (6-20) mg/dL Creatinine 0.8 (0.4-1.0) mg/dL Estimated GFR (MDRD) 68 L (>89) Glucose 77 (70-100) mg/dL Glycated Hemoglobin (4.6-6.2) % Estim Average Glucose (70-100) Calcium 8.1 L (8.5-10.3) mg/dL Total Bilirubin 1.0 (0.2-1.0) mg/dL AST 21 (10-42) IU/L ALT 23 (10-60) IU/L Alkaline Phosphatase 50 (42-121) IU/L Total Protein 5.2 L (6.7-8.2) g/dL Albumin 2.9 L (3.2-5.5) g/dL Globulin 2.3 (2.1-4.2) g/dL Albumin/Globulin Ratio 1.3 (1.0-2.2) TSH (0.34-5.60) uIU/mL Urine Color Urine Clarity (CLEAR) Urine pH (5.0-7.5) PH Ur Specific [place] (1.002-1.030) Urine Protein (NEGATIVE) mg/dL Urine Glucose (UA) (NEGATIVE) mg/dL Urine Ketones (NEGATIVE) mg/dL Urine Occult Blood (NEGATIVE) Urine Nitrite (NEGATIVE) Urine Bilirubin (NEGATIVE) Urine Urobilinogen (NORMAL) E.U./dL Ur Leukocyte Esterase (NEGATIVE) Ur Microscopic Review Urine Culture Comments 05/08/19 Range/Units 19:00 WBC (4.8-10.8) x10^3/uL RBC (4.20-5.40) 10^6/uL Hgb (12.0-16.0) g/dL Hct (37.0-47.0) % MCV (81.0-99.0) fL MCH (27.0-31.0) pg MCHC (32.0-36.0) g/dL RDW (12.0-15.0) % Plt Count (130-450) 10^3/uL MPV (7.9-10.8) fL Neut # (Auto) (1.5-6.6) 10^3/uL Lymph # (Auto) (1.5-3.5) 10^3/uL [place] # (Auto) (0.0-1.0) 10^3/uL Eos # (Auto) (0.0-0.7) 10^3/uL Baso # (Auto) (0.0-0.1) 10^3/uL Absolute Nucleated RBC x10^3/uL Nucleated RBC % /100WBC Sodium (135-145) mmol/L Potassium (3.5-5.0) mmol/L Chloride (101-111) mmol/L Carbon Dioxide (21-32) mmol/L Anion Gap (6-13) BUN (6-20) mg/dL Creatinine (0.4-1.0) mg/dL Estimated GFR (MDRD) (>89) Glucose (70-100) mg/dL Glycated Hemoglobin (4.6-6.2) % Estim Average Glucose (70-100) Calcium (8.5-10.3) mg/dL Total Bilirubin (0.2-1.0) mg/dL AST (10-42) IU/L ALT (10-60) IU/L Alkaline Phosphatase (42-121) IU/L Total Protein (6.7-8.2) g/dL Albumin (3.2-5.5) g/dL Globulin (2.1-4.2) g/dL Albumin/Globulin Ratio (1.0-2.2) TSH (0.34-5.60) uIU/mL Urine Color YELLOW Urine Clarity CLEAR (CLEAR) Urine pH 5.5 (5.0-7.5) PH Ur Specific [place] 1.020 (1.002-1.030) Urine Protein NEGATIVE (NEGATIVE) mg/dL Urine Glucose (UA) NEGATIVE (NEGATIVE) mg/dL Urine Ketones TRACE (NEGATIVE) mg/dL Urine Occult Blood NEGATIVE (NEGATIVE) Urine Nitrite NEGATIVE (NEGATIVE) Urine Bilirubin NEGATIVE (NEGATIVE) Urine Urobilinogen 0.2 (NORMAL) (NORMAL) E.U./dL Ur Leukocyte Esterase NEGATIVE (NEGATIVE) Ur Microscopic Review NOT INDICATED Urine Culture Comments NOT INDICATED ABX Reporting Has patient been on IV antibiotics over the past 48 hours?: Yes Sepsis Event Note (H) - Evaluation Current Stage of Sepsis: Ruled out Assessment/Plan - Problem List (1) Altered mental status Impression: 05/[address] of head is unremarkable. pt is off restrain now continue neuro check continue hold sedative meds as possible Unknown pt's baseline of mental status, beside of pt's hx of advanced dementia. Ammonia level is normal checked by ER. It is unknown etiology for pt's AMS. UA culture was positive for Ecoli on 04/28/19 on [facility], per ER provider's report, pt was not treated with antibiotics, it can contribute for pt's confused/AMS. order CT of head for pt, will followup neuro check for pt hold sedative meds as possible treat with Rocephin for pt's UTI (2) Upper GI bleed Conclusion/Plan: 05/09 HGB is going down from 12.7 to 11.1, but pt has no nausea or vomiting, or bowel movement yet. continue H&H, recheck continue IV of PPI bid pt was reported to have hematemesis and black stool in [facility]. but pt has stable HGB. pt had Aspirin at her home meds. check H&H, will consult with GI surgeon as needed hold Aspirin NPO after midnight in case pt need EGD IVF of NS (3) UTI (urinary tract infection) Conclusion/Plan: 05/09 UA analysis reveals negative, will stop antibiotics today UA is pending. pt had positive UA culture on 04/28/19 for Ecoli. pt was not treated with antibiotics per ER provider's report. started with Rocephin (4) Dehydration Conclusion/Plan: 05/09 improved. creatinine is down to 0.8 from 1.1 in admission. continue judiciously IVF of NS, lab monitor pt has slight elevated creatinine, but pt has more elevated BUN. It indicate pt might have gastric ulcer with blood in the stomach hydration with IV of NS lab monitor (5) Hypothyroidism Conclusion/Plan: 05/09 TSH is normal continue home meds will resume home meds, check TSH (6) HTN (hypertension) Conclusion/Plan: stable now, will resume home BP meds after verification by pharmacy (7) Dementia Conclusion/Plan: pt has hx of dementia, now she is agitated. pt has no home meds for dementia. haldol once for her agitation, soft restrain every Q24H to recheck continue support with staffs Qualifiers: Altered mental status type: somnolence Qualified Code(s): R40.0 - Somnolence (3) UTI (urinary tract infection) Qualifiers: Urinary tract infection type: acute cystitis Hematuria presence: without hematuria Qualified Code(s): N30.00 - Acute cystitis without hematuria
[2019-05-10] MEDS: SODIUM CHLORIDE FLUSH 0.9% 10 ML SYRINGE IVP SCH ×2 (03:54→10:02)
[2019-05-10] MEDS: LEVOTHYROXINE 75 MCG TABLET PO SCH (07:27)
[2019-05-10] MEDS: SODIUM CHLORIDE 0.9% 1,000 ML IV SCH (07:30)
[2019-05-10] MEDS: PANTOPRAZOLE 40 MG VIAL IVP SCH (10:01)
[2019-05-10] MEDS: LISINOPRIL 20 MG TABLET PO SCH (10:01)
[2019-05-10] MEDS: cefTRIAXone 1 GM in SODIUM CHLORIDE 0.9% MINIBAG 100 ML IV SCH (10:01)
[2019-05-10] MEDS: POLYETHYLENE GLYCOL 3350 17 GM PACKET PO SCH (10:02)
--- NOTE | 2019-05-10 12:34 | Discharge Plan ---
"Discharge Plan for SNF / [facility] - Discharge Plan And Transition Orders Problem Reviewed?: Yes Disposition: 03 SNF DC/Xfer Condition: Stable Allergies and Adverse Reactions: Allergies Allergy/AdvReac Type Severity Reaction Status Date / Time No Known Drug Allergies Allergy Verified 07/24/14 20:51 Health Concerns: GI bleeding Plan of Treatment: pt has no GI bleeding in hospital. her HGB continue stable, now her HGB is 12.4. Family report pt has hx of gastric ulcer. Hold NSAIDs, PPI is prescribed for pt Care Goals: stabilization and improvement of pt's medical conditions Assessment: assessment as the above - SNF / RESIDENTIAL Transition Orders Admit to (Facility): [facility] Under the care of (Name): Orin Cody Discharge Diagnosis: Dementia, GI bleeding, dehydration, hypothyroidism, UTI, HTN Medicare Certification Statement: I do not certify that Post Hospital fci care is medically necessary on a continuing basis for any of the conditions for which she/he is receiving care during hospitalization. Notify PCP of admission and forward orders to primary provider for signature. Weight on admission and: Daily Call PCP immediately if weight increases by: 2 kg Other Notification Orders: Call PCP immediately if patient develops dyspnea, chest pain/tightness or edema. House Bowel Program: Yes Additional Bowel Program Orders: If no BM after 2 days, nurse may give M.O.M. 30ml PO PRN and/or ducolax Supp 1 [place] and/or PJ 250mg P.O., and/or senna 1-2 tabs PO. On day 3 nurse may give repeat above order until residents constipation is resolved. Annual Influenza Vaccine (between Apr 01 and October 29): Yes Two-step PPD per [employer] [id number] or approved exception documents: Yes Treatments & Other Orders: pt may followup Dr. Floyd when she is arrival to [facility], and H&H in one week. Medication Orders: PLEASE REFER TO THE DISCHARGE MEDICATION LIST. Insulin Orders?: No - Medications New Prescriptions: Pantoprazole Sodium [Protonix] 40 mg PO DAILY #10 tablet.dr - Diet Type: Geriatric Texture: Mech soft Liquids: Thin May have monthly special meal: Yes - Therapies | Activity Rehabilitation Potential: Maximize functional status Activity: Activity as Tolerated"
--- NOTE | 2019-05-10 12:51 | DISCHARGE SUMMARY ---
Discharge Summary Admit Date: 05/08/19 Discharge Date: 05/10/19 Discharging Provider: PANDYA Primary Care Provider: Orin Cody Condition at Discharge: Stable Discharge Disposition: 03 SNF DC/Xfer Discharge Facility Name: [facility] - DIAGNOSES Admission Diagnoses: (1) Altered mental status (2) Upper GI bleed (3) UTI (urinary tract infection) (4) Dehydration (5) Hypothyroidism (6) HTN (hypertension) (7) Dementia Discharge Diagnoses with Status of Each Condition: (1) Altered mental status resolved as her baseline. I discussed with pt's sister in law as pt's DPOA, Marika, about pt's care plan. she state this is her baseline. she hope pt can return to her familiar environment as soon as possible, pt will do better (2) Upper GI bleed no upper GI bleed in hospital. pt has no nausea, vomiting. pt tolerate diet very well. I discussed with our GI surgeon Dr. Janusz Milan about pt's care management. stated we do not need consult with him, it seems to him pt clinically is stable. Dr. Boudreaux recommended PPI for pt. pt is prescribed Protonic for d/c pt's HGB continued stable. (3) UTI (urinary tract infection) Per ER provider's reported, pt was not treated on her UTI on her last diagnosis of UTI. pt was treated with Rocephin at hospital. New UA reveals pt has no more UTI. pt was not prescribed antibiotics for D/C (4) Dehydration resolved, creatinine is 0.9 (5) Hypothyroidism stable (6) HTN (hypertension) stable (7) Dementia stable, as pt's baseline - HPI History of Present Illness: Ms. Carballo is 83 yrs female with a PMH significant for advanced dementia, HTN, hypothyroidism, GERD, incontinency, anxiety, osteoarthritis, who present ER from [facility] for confused and altered mental status. Pt is still very confused and agitated. pt pulled her IV port twice in ER. pt could not provide any medical history. From ER provider provider information, yesterday in [facility] pt had an abrupt onset vomiting of some coffee-ground type appearance residence and She also had bowel movement of dark stool overnight. She was reported to have seemed more confused and sleepier than usual. Per ER provider reported, from pt's [facility] notes which came with her it shows pt had a recent positive urine culture of Ecoli on 04/28/19 but pt had no antibiotics on her MAR. Pt's HGB is 12.7 now and It has been stable since 2016. Pt denies chest pain, abdominal pain " I do not need any medication, and I am fine." Initially pt's BP was 102/60, now she is hemodynamic stable. I called Dr. Janusz Milan to consult for pt's GI bleed. Per Dr. Milan's suggestion, since pt's HGB is stable, pt took Aspirin, and pt is advanced dementia, confused, let's treat pt for gastric ulcer with PPI, continue H&H to monitor pt, will consult with him as needed. Pt had PLOST which stated pt is DNR/DNI and comfortable measure only status. pt's UA is pending, pt had elevated BUN at 35 and slight elevated creatinine at 1.1. pt is admitted in observation unit for further management. - HOSPITAL COURSE Hospital Course: pt was admitted for altered mental status, possible upper GI bleed, and untreated UTI. pt was closely monitor upper GI and H&H, pt was treated with Rocephin. after hospital stay, pt's mental status return to her baseline per pt's Marika THURSTON. pt has no upper GI bleed. pt's HGB continue stable. New UA indicate pt's UTI was resolved. pt was return and d/c to [facility]. the detail hospital course is as the below 1) Altered mental status resolved as her baseline. I discussed with pt's sister in law as pt's Marika THURSTON, about pt's care plan. she state this is her baseline. she hope pt can return to her familiar environment as soon as possible, pt will do better (2) Upper GI bleed no upper GI bleed in hospital. pt has no nausea, vomiting. pt tolerate diet very well. I discussed with our GI surgeon Dr. Janusz Milan about pt's care management. stated we do not need consult with him, it seems to him pt clinically is stable. Dr. Boudreaux recommended PPI for pt. pt is prescribed Protonic for d/c pt's HGB continued stable. (3) UTI (urinary tract infection) Per ER provider's reported, pt was not treated on her UTI on her last diagnosis of UTI. pt was treated with Rocephin at hospital. New UA reveals pt has no more UTI. pt was not prescribed antibiotics for D/C (4) Dehydration resolved, creatinine is 0.9 (5) Hypothyroidism stable (6) HTN (hypertension) stable (7) Dementia stable, as pt's baseline - ALLERGIES Allergies/Adverse Reactions: Allergies Allergy/AdvReac Type Severity Reaction Status Date / Time No Known Drug Allergies Allergy Verified 07/24/14 20:51 - MEDICATIONS Home Medications: Ambulatory Orders Medication Instructions Recorded Confirmed Levothyroxine Sodium [Tirosint] 75 mcg PO QDAC 07/08/13 05/09/19 Acetaminophen 650 mg PO Q6H PRN 05/09/19 05/09/19 Cetirizine HCl 10 mg PO DAILY 05/09/19 05/09/19 Ferrous Gluconate 240 mg PO DAILY 05/09/19 05/09/19 Multivitamin W/Minerals [Theragran 1 tab PO DAILY 05/09/19 05/09/19 M] Potassium Chloride 20 meq PO DAILY 05/09/19 05/09/19 Prazosin HCl 2 mg PO DAILY 05/09/19 05/09/19 QUEtiapine [SEROquel] 25 mg PO DAILY PRN 05/09/19 05/09/19 Saccharomyces Boulardii [Florastor] 250 mg PO BIDWM 05/09/19 05/09/19 Tramadol HCl 25 mg PO DAILY 05/09/19 05/09/19 Pantoprazole Sodium [Protonix] 40 mg PO DAILY #10 tablet. 05/10/19 - PHYSICAL EXAM AT DISCHARGE General Appearance: positive: No acute distress, Alert. negative: Lethargic Eyes Bilateral: positive: Normal inspection, PERRL, No lid inflammation, Conjunctivae nml ENT: positive: ENT inspection nml, Pharynx nml, No signs of dehydration. negative: Purulent nasal drainage Neck: positive: Nml inspection, Thyroid nml, No JVD, Trachea midline. negative: Thyromegaly, Lymphadenopathy (R), Lymphadenopathy (L), Stiff neck, Swelling/bruising, Tracheal deviation Respiratory: positive: Chest non-tender, No respiratory distress, Breath sounds nml. negative: Wheezes, Rales, Rhonchi Cardiovascular: positive: Regular rate & rhythm, No murmur, No gallop. negative: Irregularly irregular, Extrasystoles, Tachycardia, Bradycardia, JVD present, Systolic murmur, Diastolic murmur Peripheral Pulses: positive: 2+ Abdomen: positive: Non-tender, No organomegaly, Nml bowel sounds, No distention. negative: Tenderness, Guarding, Rebound Back: positive: Nml inspection. negative: CVA tenderness (R), CVA tenderness (L) Skin: positive: Color nml, No rash, Warm, Dry. negative: Cyanosis, Diaphoresis, Pallor, Skin rash Extremities: positive: Non-tender, Full ROM, Nml appearance. negative: Calf tenderness, Joint swelling, Bogdan's sign/cords Neurologic/Psychiatric: positive: Motor nml, Sensation nml. negative: Weakness, Sensory loss, Facial droop, Slurred/abnml speech, Depressed mood/affect - LABS Result Diagrams: 05/09/19 11:15 05/09/19 05:05 - SEPSIS Current Stage of Sepsis: Ruled out - FOLLOW UP Follow Up: pt may followup Dr. Floyd when she is arrival to [facility], and H&H in one week. - TIME SPENT Time Spent in Discharge (Minutes): 45
[2019-05-10 15:43] VITALS: BP 129/60
== END 2019-05-10 15:43 | disposition home or self-care (01) ==
LOC: EDUNIT# → ED 10:34 → MS2 14:20
PROVIDERS: ADMIT Nurse Practitioner Gerontology; ATTEND Nurse Practitioner Gerontology
DX: R41.0 Disorientation, unspecified (principal); I95.9 Hypotension, unspecified; E86.0 Dehydration; R11.10 Vomiting, unspecified; R19.5 Other fecal abnormalities; E03.9 Hypothyroidism, unspecified; I10 Essential (primary) hypertension; F03.90 Unspecified dementia, unspecified severity, without behavioral disturbance, psychotic disturbance, mood disturbance, and anxiety; K21.9 Gastro-esophageal reflux disease without esophagitis; F41.9 Anxiety disorder, unspecified; R32 Unspecified urinary incontinence; R45.1 Restlessness and agitation; Z78.1 Physical restraint status; Z79.82 Long term (current) use of aspirin; Z79.899 Other long term (current) drug therapy; Z66 Do not resuscitate; Z87.11 Personal history of peptic ulcer disease; Z87.440 Personal history of urinary (tract) infections; Z86.39 Personal history of other endocrine, nutritional and metabolic disease
CPT/HCPCS: 36415; 51701; 70450; 80053; 81003; 82140; 83036; 83605; 83690; 83735; 85014; 85018; 85025; 86850; 86900; 86901; 96361; 96365; 96372; 96375; 96376; 99285; A9270; G0378; J2060; 81001; 82272; 84443; 87086

== ENCOUNTER 2019-06-10 14:15 | Outpatient (CLI) | payer MEDICARE, MEDICAID ==
[2019-06-10 15:32] LABS: BASOPHILS % (AUTO) 0.6 %; EOSINOPHILS # (AUTO) 0.1 10^3/uL (0.0-0.7); EOSINOPHILS % (AUTO) 1.2 %; HGB - HEMOGLOBIN 9.6 g/dL (12.0-16.0); LYMPHOCYTES # (AUTO) 0.9 10^3/uL (1.5-3.5); LYMPHOCYTES % (AUTO) 13.5 %; MEAN CORPUSCULAR HEMOGLOBIN 28.9 pg (27.0-31.0); MEAN CORPUSCULAR HGB CONC 30.7 g/dL (32.0-36.0); MEAN CORPUSCULAR VOLUME 94.3 fL (81.0-99.0); MONOCYTES # (AUTO) 0.5 10^3/uL (0.0-1.0); MONOCYTES % (AUTO) 7.5 %; NEUTROPHILS # (AUTO) 5.3 10^3/uL (1.5-6.6); NEUTROPHILS % (AUTO) 76.8 %; PLT - PLATELET COUNT 317 10^3/uL (130-450); RED BLOOD COUNT 3.32 10^6/uL (4.20-5.40); RED CELL DISTRIBUTION WIDTH 14.6 % (12.0-15.0); WHITE BLOOD COUNT 6.9 x10^3/uL (4.8-10.8)
== END 2019-06-10 23:59 | disposition home or self-care (01) ==
LOC: LAB.R 14:15
PROVIDERS: ATTEND Family Medicine
DX: E61.1 Iron deficiency (principal); E61.6 Vanadium deficiency; E87.6 Hypokalemia
CPT/HCPCS: 82728; 85025

== ENCOUNTER 2019-06-20 14:44 | Outpatient (CLI) | payer MEDICARE, MEDICAID ==
[2019-06-20 16:54] LABS: BASOPHILS % (AUTO) 0.4 %; EOSINOPHILS # (AUTO) 0.1 10^3/uL (0.0-0.7); EOSINOPHILS % (AUTO) 1.6 %; HGB - HEMOGLOBIN 10.6 g/dL (12.0-16.0); LYMPHOCYTES # (AUTO) 1.2 10^3/uL (1.5-3.5); LYMPHOCYTES % (AUTO) 12.9 %; MEAN CORPUSCULAR HEMOGLOBIN 28.9 pg (27.0-31.0); MEAN CORPUSCULAR HGB CONC 30.5 g/dL (32.0-36.0); MEAN CORPUSCULAR VOLUME 94.8 fL (81.0-99.0); MEAN PLATELET VOLUME 9.6 fL (7.9-10.8); MONOCYTES # (AUTO) 0.7 10^3/uL (0.0-1.0); MONOCYTES % (AUTO) 7.6 %; NEUTROPHILS # (AUTO) 6.9 10^3/uL (1.5-6.6); NEUTROPHILS % (AUTO) 77.1 %; PLT - PLATELET COUNT 423 10^3/uL (130-450); RED BLOOD COUNT 3.67 10^6/uL (4.20-5.40); RED CELL DISTRIBUTION WIDTH 14.7 % (12.0-15.0)
== END 2019-06-20 23:59 | disposition home or self-care (01) ==
LOC: LAB.R 14:44
PROVIDERS: ATTEND Family Medicine
DX: D50.8 Other iron deficiency anemias (principal)
CPT/HCPCS: 85025

== ENCOUNTER 2019-07-06 12:07 | Outpatient (CLI) | payer MEDICARE, MEDICAID | END 2019-07-06 12:08 | disposition critical access hospital (66) | LOC: EMS 12:07 | PROVIDERS: ATTEND Surgery | DX: M54.5 Low back pain (principal) | CPT/HCPCS: A0425; A0429 ==

== ENCOUNTER 2019-07-06 12:13 | Emergency (ER) | payer MEDICARE, MEDICAID ==
[2019-07-06] MEDS ORDERED: HYDROcod/ACETAM 5/325 MG TABLET PO STA (12:18)
[2019-07-06 12:20] VITALS: BP 133/67
--- NOTE | 2019-07-06 12:21 | ED Physician Documentation ---
PD HPI BACK PAIN - Stated complaint Stated Complaint: BACK PAIN - History obtained from History obtained from: EMS - History of Present Illness Timing - onset: Today (This is a sam but demented elderly woman who comes in by ambulance from a local correction with complaints of back pain. All of the history is from handoff from the paramedics because of the dementia. Reportedly had some recent falls, they are poorly described to me. She was doing okay earlier in the day but had increased left low back pain today. Of note this is the area where she had shingles a couple of months ago. The only treatment for the pain given at the correction was a lidocaine patch.) Review of Systems Unable to obtain: Dementia PD PAST MEDICAL HISTORY - Past Medical History Cardiovascular: Hypertension Respiratory: None Neuro: Dementia Endocrine/Autoimmune: Type 2 diabetes, HyPOthyroidism GI: GERD SERVICE PROVIDER: None : Incontinence HEENT: None Psych: Anxiety Musculoskeletal: Osteoarthritis Derm: None - Past Surgical History Past Surgical History: Yes - Present Medications Home Medications: Ambulatory Orders Medication Instructions Recorded Confirmed Levothyroxine Sodium [Tirosint] 75 mcg PO QDAC 07/08/13 05/09/19 Acetaminophen 650 mg PO Q6H PRN 05/09/19 05/09/19 Cetirizine HCl 10 mg PO DAILY 05/09/19 05/09/19 Ferrous Gluconate 240 mg PO DAILY 05/09/19 05/09/19 Multivitamin W/Minerals [Theragran 1 tab PO DAILY 05/09/19 05/09/19 M] Potassium Chloride 20 meq PO DAILY 05/09/19 05/09/19 Prazosin HCl 2 mg PO DAILY 05/09/19 05/09/19 QUEtiapine [SEROquel] 25 mg PO DAILY PRN 05/09/19 05/09/19 Saccharomyces Boulardii [Florastor] 250 mg PO BIDWM 05/09/19 05/09/19 Tramadol HCl 25 mg PO DAILY 05/09/19 05/09/19 Pantoprazole Sodium [Protonix] 40 mg PO DAILY #10 tablet. 05/10/19 Hydrocodone/Acetaminophen 1 - 2 each PO Q6H PRN #20 tablet 07/06/19 [Hydrocodon-Acetaminophen 5-325] - Allergies Allergies/Adverse Reactions: Allergies Allergy/AdvReac Type Severity Reaction Status Date / Time No Known Drug Allergies Allergy Verified 07/24/14 20:51 - Social History Does the pt smoke?: No Smoking Status: Never smoker Does the pt drink ETOH?: No Does the pt have substance abuse?: No - Immunizations Immunizations are current?: Yes - POLST Patient has POLST: Yes POLST Status: DNR PD ED PE NORMAL - Vitals Vital signs reviewed: Yes - General General: Other (She is alert and oriented to person, she can show me where her pain is. She does not remember any specific injury. With some prompting she can come up with the fact that she is in the hospital.) - HEENT HEENT: PERRL - Neck Neck: Supple, no meningeal sign, No bony TTP - Cardiac Cardiac: RRR, No murmur - Respiratory Respiratory: No respiratory distress, Clear bilaterally - Abdomen Abdomen: Non tender - Back Back: Other (She points to the area of the left low back just above the pelvic brim as the site of pain. There is no rash there now. I am unable to re-create it with palpation.) - Neuro Neuro: rhinologist 2-12 intact Eye Opening: Spontaneous Motor: Obeys Commands Verbal: Confused GCS Score: 14 Results - Vitals Vitals: Vital Signs - 24 hr 07/06/19 12:15 Temperature 36.9 C Heart Rate 64 Respiratory 16 Rate Blood Pressure 133/67 H O2 Saturation 97 Oxygen O2 Source Simple Mask - Labs Labs: Laboratory Tests 07/06/19 07/06/19 12:30 12:30 WBC 6.9 RBC 3.50 L Hgb 10.2 L Hct 32.6 L MCV 93.1 MCH 29.1 MCHC 31.3 L RDW 14.1 Plt Count 352 MPV 8.8 Neut # (Auto) 5.6 Lymph # (Auto) 0.7 L [place] # (Auto) 0.4 Eos # (Auto) 0.1 Baso # (Auto) 0.0 Absolute Nucleated RBC 0.00 Nucleated RBC % 0.0 Sodium 137 Potassium 4.0 Chloride 103 Carbon Dioxide 26 Anion Gap 8.0 BUN 23 H Creatinine 1.0 Estimated GFR (MDRD) 53 L Glucose 96 Calcium 9.0 Total Bilirubin 0.9 AST 18 ALT 12 Alkaline Phosphatase 91 Total Protein 5.7 L Albumin 3.0 L Globulin 2.7 Albumin/Globulin Ratio 1.1 Lipase 34 - Rads (name of study) CT of the pelvis and lumbar spine without contrast Radiology: EMP read contemporaneously (1. Severe compression fracture deformity of the L2 vertebral body with posterior displacement of the posterior wall into the spinal canal appears similar to the to the prior lumbar spine MRI dated 06/09/2011 with slight increase in the anterior displacement of the anterior wall compared to the prior examination. 2. There is new moderate anterior wedging of the T11 and mild anterior wedging of T10 and T12. 3. significant collapse of the central aspect of the L3 superior endplate which appears new from the prior examination. 4. Bony encroachment on the right and left neural foramina. 1. Osteopenia which lowers the sensitivity in detecting acute fractures by CT. There is slight cortical buckle deformity at the S3 and S4 segments of the sacrum suspicious for a nondisplaced fracture of indeterminate chronicity. 2. Mild arthritic changes at the sacroiliac joints and pubic symphysis and hip joints.) PD MEDICAL DECISION MAKING - ED course ED course: 83-year-old woman with an acute exacerbation of left low back pain. There were some recent falls so there is a possibility of trauma. The paramedics did not describe any change in mental status to me, but the notes that accompany her from the correction suggest there has been some change in mental status from baseline, although she seems to be pretty consistent from what was described in previous emergency department charts as far as her mental status. We will do some imaging to make sure there was no traumatic injury. This may be postherpetic neuralgia. CT as shown, the severe L2 vertebral body fracture looks chronic, there is evidence of several new compression fractures since 2010, all age-indeterminate. After a hydrocodone here she was walking around and seemed comfortable. Departure - Departure Disposition: 01 Home, Self Care Clinical Impression: Back pain Qualifiers: Back pain location: low back pain Chronicity: chronic Back pain laterality: left Sciatica presence: without sciatica Qualified Code(s): M54.5 - Low back pain; G89.29 - Other chronic pain Condition: Good Record reviewed to determine appropriate education?: Yes Instructions: ED Chronic Pain Management, ED Low Back Pain Injury Prescriptions: Hydrocodone/Acetaminophen [Hydrocodon-Acetaminophen 5-325] 1 - 2 each PO Q6H PRN #20 tablet PRN Reason: pain Comments: Lianna did well here after hydrocodone. I am prescribing this for ongoing use. The CAT scan of the lumbar spine/ pelvis is as follows: 1. Severe compression fracture deformity of the L2 vertebral body with posterior displacement of the posterior wall into the spinal canal appears similar to the to the prior lumbar spine MRI dated 06/09/2011 with slight increase in the anterior displacement of the anterior wall compared to the prior examination. 2. There is new moderate anterior wedging of the T11 and mild anterior wedging of T10 and T12. 3. significant collapse of the central aspect of the L3 superior endplate which appears new from the prior examination. 4. Bony encroachment on the right and left neural foramina. 1. Osteopenia which lowers the sensitivity in detecting acute fractures by CT. There is slight cortical buckle deformity at the S3 and S4 segments of the sacrum suspicious for a nondisplaced fracture of indeterminate chronicity. 2. Mild arthritic changes at the sacroiliac joints and pubic symphysis and hip joints. So in conclusion the L2 fracture is old, there are several new compression fractures, but we only know they are new since 2010. Compression fractures are very common in elderly women. Given the location of her pain just above the left pelvic brim posteriorly I suspect these are all incidental findings. She may also have some postherpetic neuralgia, because this is the area where she had herpes zoster 2 months ago. Return anytime if worse.
[2019-07-06 12:35] LABS: BASOPHILS % (AUTO) 0.4 %; EOSINOPHILS # (AUTO) 0.1 10^3/uL (0.0-0.7); EOSINOPHILS % (AUTO) 1.3 %; HGB - HEMOGLOBIN 10.2 g/dL (12.0-16.0); LYMPHOCYTES # (AUTO) 0.7 10^3/uL (1.5-3.5); LYMPHOCYTES % (AUTO) 10.1 %; MEAN CORPUSCULAR HEMOGLOBIN 29.1 pg (27.0-31.0); MEAN CORPUSCULAR HGB CONC 31.3 g/dL (32.0-36.0); MEAN CORPUSCULAR VOLUME 93.1 fL (81.0-99.0); MEAN PLATELET VOLUME 8.8 fL (7.9-10.8); MONOCYTES # (AUTO) 0.4 10^3/uL (0.0-1.0); MONOCYTES % (AUTO) 6.3 %; NEUTROPHILS # (AUTO) 5.6 10^3/uL (1.5-6.6); NEUTROPHILS % (AUTO) 81.8 %; PLT - PLATELET COUNT 352 10^3/uL (130-450); RED CELL DISTRIBUTION WIDTH 14.1 % (12.0-15.0); WHITE BLOOD COUNT 6.9 x10^3/uL (4.8-10.8)
[2019-07-06 12:47] LABS: ALBUMIN/GLOBULIN RATIO 1.1 (1.0-2.2); BILIRUBIN,TOTAL 0.9 mg/dL (0.2-1.0); TOTAL PROTEIN 5.7 g/dL (6.7-8.2)
--- NOTE | 2019-07-06 13:26 | CT Report ---
Reason: back pain Procedure Date: 07/06/2019 Accession Number: [id number] / [id number] Procedure: CT - PELVIS WO CPT Code: Final Report FULL RESULT: EXAM: CT BONY PELVIS WITHOUT CONTRAST EXAM DATE: 07/06/2019 12:48 PM. CLINICAL HISTORY: Low back pain after fall 2 weeks ago. COMPARISON: None. TECHNIQUE: Thin-section axial images were acquired of the pelvis without contrast. Post-processing: Coronal and sagittal reformats. Other: None. In accordance with CT protocol optimization, one or more of the following dose reduction techniques were utilized for this exam: automated exposure control, adjustment of mA and/or KV based on patient size, or use of iterative reconstructive technique. FINDINGS: The bones are osteopenic which lowers the sensitivity in detecting acute fractures by CT. Slight cortical buckle deformity at the S3 and S4 segments of the sacrum suspicious for a nondisplaced fracture. No definite bone lesions. Sacroiliac Joints: Mild arthritic changes. Symphysis Pubis: Mild arthritic changes. Right Hip: Mild osteoarthritis. Left Hip: Mild osteoarthritis. Musculature: Normal. No fatty atrophy. Pelvic Cavity: Sigmoid colon diverticulosis is present. Previous hysterectomy. No free fluid. No lymph or not this. Calcified plaques at the abdominal aorta and iliac arteries. Other: No lymphadenopathy. No free air or free fluid. The other visualized soft tissues are unremarkable. IMPRESSION: 1. Osteopenia which lowers the sensitivity in detecting acute fractures by CT. There is slight cortical buckle deformity at the S3 and S4 segments of the sacrum suspicious for a nondisplaced fracture of indeterminate chronicity. 2. Mild arthritic changes at the sacroiliac joints and pubic symphysis and hip joints. RADIA
--- NOTE | 2019-07-06 13:29 | CT Report ---
Reason: back pain Procedure Date: 07/06/2019 Accession Number: [id number] / [id number] Procedure: CT - LUMBAR SPINE WO CPT Code: Final Report FULL RESULT: EXAM: CT LUMBAR SPINE WITHOUT CONTRAST EXAM DATE: 07/06/2019 12:48 PM. CLINICAL HISTORY: Back pain. COMPARISONS: MRI LUMBAR SPINE 06/09/2011 11:05 AM. TECHNIQUE: Thin-section axial images were acquired of the lumbar spine from T12 to S1 without contrast. Post-processing: Coronal and sagittal reformats. Other: None. In accordance with CT protocol optimization, one or more of the following dose reduction techniques were utilized for this exam: automated exposure control, adjustment of mA and/or KV based on patient size, or use of iterative reconstructive technique. FINDINGS: Alignment: No scoliosis or spondylolisthesis. Bones: Five [id number] lumbar vertebral bodies are present. Severe compression fracture deformity of the L2 vertebral body with posterior displacement of the posterior wall into the spinal canal appears similar to the to the prior lumbar spine MRI dated 06/09/2011 with slight increase in the anterior displacement of the anterior wall compared to the prior examination. There is new moderate anterior wedging of the T11 and mild anterior wedging of T10 and T12. Significant collapse of the central aspect of the L3 superior endplate which appears new from the prior examination. Disk Levels/Facets: T12-L1: Unremarkable. L1-L2: Unremarkable. L2-L3: Bony encroachment on the right and left neural foramina. L3-L4: Unremarkable. L4-L5: Unremarkable. L5-S1: Unremarkable. Musculature: Normal. No fatty atrophy. Other: Small hiatal hernia. Partially visualized probable simple cyst in the posterior aspect right lobe of the liver measuring at least 2.0 cm. IMPRESSION: 1. Severe compression fracture deformity of the L2 vertebral body with posterior displacement of the posterior wall into the spinal canal appears similar to the to the prior lumbar spine MRI dated 06/09/2011 with slight increase in the anterior displacement of the anterior wall compared to the prior examination. 2. There is new moderate anterior wedging of the T11 and mild anterior wedging of T10 and T12. 3. Significant collapse of the central aspect of the L3 superior endplate which appears new from the prior examination. 4. Bony encroachment on the right and left neural foramina. RADIA
== END 2019-07-06 14:16 | disposition home or self-care (01) ==
LOC: EDUNIT# → ED 12:13
DX: G89.29 Other chronic pain (principal); M54.5 Low back pain; F03.90 Unspecified dementia, unspecified severity, without behavioral disturbance, psychotic disturbance, mood disturbance, and anxiety; I10 Essential (primary) hypertension; E11.9 Type 2 diabetes mellitus without complications; Z66 Do not resuscitate
CPT/HCPCS: 36415; 72131; 72192; 80053; 83690; 85025; 99281; 99284; A9270

== ENCOUNTER 2020-04-03 08:00 | Outpatient (CLI) | payer MEDICARE, MEDICAID ==
[2020-04-03 15:53] LABS: BASOPHILS % (AUTO) 0.5 %; EOSINOPHILS # (AUTO) 0.1 10^3/uL (0.0-0.7); LYMPHOCYTES # (AUTO) 1.1 10^3/uL (1.5-3.5); LYMPHOCYTES % (AUTO) 19.7 %; MEAN CORPUSCULAR HEMOGLOBIN 27.9 pg (27.0-31.0); MEAN CORPUSCULAR HGB CONC 30.4 g/dL (32.0-36.0); MEAN CORPUSCULAR VOLUME 91.6 fL (81.0-99.0); MEAN PLATELET VOLUME 10.2 fL (7.9-10.8); MONOCYTES # (AUTO) 0.5 10^3/uL (0.0-1.0); MONOCYTES % (AUTO) 8.1 %; NEUTROPHILS # (AUTO) 3.9 10^3/uL (1.5-6.6); NEUTROPHILS % (AUTO) 69.5 %; PLT - PLATELET COUNT 267 10^3/uL (130-450); RED BLOOD COUNT 3.59 10^6/uL (4.20-5.40); RED CELL DISTRIBUTION WIDTH 12.9 % (12.0-15.0); WHITE BLOOD COUNT 5.6 x10^3/uL (4.8-10.8)
== END 2020-04-03 23:59 | disposition home or self-care (01) ==
LOC: LAB.R 08:00
PROVIDERS: ATTEND Family Medicine
DX: E61.1 Iron deficiency (principal); R42 Dizziness and giddiness
CPT/HCPCS: 82728; 85025

== ENCOUNTER 2020-06-06 11:00 | Outpatient (CLI) | payer MEDICARE, MEDICAID ==
[2020-06-06 12:20] LABS: BASOPHILS % (AUTO) 0.5 %; EOSINOPHILS # (AUTO) 0.2 10^3/uL (0.0-0.7); HGB - HEMOGLOBIN 11.1 g/dL (12.0-16.0); LYMPHOCYTES # (AUTO) 1.3 10^3/uL (1.5-3.5); LYMPHOCYTES % (AUTO) 17.5 %; MEAN CORPUSCULAR HEMOGLOBIN 27.7 pg (27.0-31.0); MEAN CORPUSCULAR HGB CONC 30.2 g/dL (32.0-36.0); MEAN CORPUSCULAR VOLUME 91.8 fL (81.0-99.0); MEAN PLATELET VOLUME 9.6 fL (7.9-10.8); MONOCYTES # (AUTO) 0.6 10^3/uL (0.0-1.0); MONOCYTES % (AUTO) 8.7 %; NEUTROPHILS # (AUTO) 5.2 10^3/uL (1.5-6.6); PLT - PLATELET COUNT 356 10^3/uL (130-450); RED BLOOD COUNT 4.01 10^6/uL (4.20-5.40); RED CELL DISTRIBUTION WIDTH 13.3 % (12.0-15.0); WHITE BLOOD COUNT 7.4 x10^3/uL (4.8-10.8)
[2020-06-06 12:41] LABS: ALBUMIN/GLOBULIN RATIO 1.3 (1.0-2.2); ALKALINE PHOSPHATASE 76 IU/L (42-121); ALT ALANINE AMINOTRANSFERASE 20 IU/L (10-60); AST ASPARTATE AMINOTRANSFERASE 24 IU/L (10-42); BILIRUBIN,TOTAL 1.1 mg/dL (0.2-1.0); BUN - BLOOD UREA NITROGEN 34 mg/dL (6-20); CALCIUM 9.3 mg/dL (8.5-10.3); CARBON DIOXIDE - CO2 28 mmol/L (21-32); CHLORIDE 100 mmol/L (101-111); CHOL/HDL RATIO 3.1 (<4.4); CHOLESTEROL 221 mg/dL; CREATININE 1.6 mg/dL (0.4-1.0); HDL CHOLESTEROL 72 mg/dL; LDL CHOLESTEROL,CALCULATED 130 mg/dL; LDL/HDL RATIO 1.8 (<4.4); SODIUM 139 mmol/L (135-145); TOTAL PROTEIN 7.1 g/dL (6.7-8.2); VLDL CHOLESTEROL 19 mg/dL
[2020-06-06 12:43] LABS: GLUCOSE 56 mg/dL (70-100); T4 (THYROXINE) 8.76 ug/dL (6.09-12.23)
[2020-06-06 12:53] LABS: FERRITIN 12.9 ng/mL (11.0-306.8)
[2020-06-06 20:23] LABS: HEMOGLOBIN A1c% 5.5 % (4.27-6.07)
== END 2020-06-06 23:59 | disposition home or self-care (01) ==
LOC: LAB.R 11:00
DX: E78.5 Hyperlipidemia, unspecified (principal); E87.6 Hypokalemia; E03.9 Hypothyroidism, unspecified; E11.9 Type 2 diabetes mellitus without complications; D50.8 Other iron deficiency anemias
CPT/HCPCS: 80053; 80061; 82728; 83036; 83721; 84436; 85025

== ENCOUNTER 2020-09-11 07:00 | Outpatient (CLI) | payer MEDICARE, MEDICAID ==
[2020-09-11 10:40] LABS: BASOPHILS # (AUTO) 0.1 10^3/uL (0.0-0.1); BASOPHILS % (AUTO) 0.8 %; EOSINOPHILS # (AUTO) 0.2 10^3/uL (0.0-0.7); EOSINOPHILS % (AUTO) 3.1 %; HGB - HEMOGLOBIN 11.6 g/dL (12.0-16.0); LYMPHOCYTES % (AUTO) 15.8 %; MEAN CORPUSCULAR HEMOGLOBIN 28.7 pg (27.0-31.0); MEAN CORPUSCULAR HGB CONC 30.7 g/dL (32.0-36.0); MEAN CORPUSCULAR VOLUME 93.6 fL (81.0-99.0); MEAN PLATELET VOLUME 9.9 fL (7.9-10.8); MONOCYTES # (AUTO) 0.4 10^3/uL (0.0-1.0); MONOCYTES % (AUTO) 6.7 %; NEUTROPHILS # (AUTO) 4.5 10^3/uL (1.5-6.6); NEUTROPHILS % (AUTO) 73.4 %; PLT - PLATELET COUNT 383 10^3/uL (130-450); RED BLOOD COUNT 4.04 10^6/uL (4.20-5.40); RED CELL DISTRIBUTION WIDTH 13.6 % (12.0-15.0); WHITE BLOOD COUNT 6.1 x10^3/uL (4.8-10.8)
[2020-09-11 10:54] LABS: CALCIUM 9.2 mg/dL (8.5-10.3); CREATININE 1.2 mg/dL (0.4-1.0)
[2020-09-11 11:08] LABS: THYROID STIMULATING HORMONE 1.61 uIU/mL (0.34-5.60)
[2020-09-11 11:14] LABS: FERRITIN 28.3 ng/mL (11.0-306.8)
== END 2020-09-11 23:59 | disposition home or self-care (01) ==
LOC: LAB.R 07:00
DX: E87.6 Hypokalemia (principal); D50.8 Other iron deficiency anemias; E03.9 Hypothyroidism, unspecified
CPT/HCPCS: 80048; 82728; 84443; 85025

== ENCOUNTER 2020-10-06 12:04 | Outpatient (CLI) | payer MEDICARE, MEDICAID ==
[2020-10-06 13:22] LABS: BASOPHILS % (AUTO) 0.4 %; EOSINOPHILS # (AUTO) 0.1 10^3/uL (0.0-0.7); EOSINOPHILS % (AUTO) 1.7 %; HCT - HEMATOCRIT 35.6 % (37.0-47.0); HGB - HEMOGLOBIN 11.1 g/dL (12.0-16.0); LYMPHOCYTES # (AUTO) 0.8 10^3/uL (1.5-3.5); LYMPHOCYTES % (AUTO) 11.8 %; MEAN CORPUSCULAR HEMOGLOBIN 28.7 pg (27.0-31.0); MEAN CORPUSCULAR HGB CONC 31.2 g/dL (32.0-36.0); MEAN PLATELET VOLUME 10.6 fL (7.9-10.8); MONOCYTES # (AUTO) 0.4 10^3/uL (0.0-1.0); MONOCYTES % (AUTO) 4.9 %; NEUTROPHILS # (AUTO) 5.7 10^3/uL (1.5-6.6); NEUTROPHILS % (AUTO) 81.1 %; PLT - PLATELET COUNT 322 10^3/uL (130-450); RED BLOOD COUNT 3.87 10^6/uL (4.20-5.40); WHITE BLOOD COUNT 7.1 x10^3/uL (4.8-10.8)
== END 2020-10-06 23:59 | disposition home or self-care (01) ==
LOC: LAB.R 12:04
DX: E61.1 Iron deficiency (principal); E11.9 Type 2 diabetes mellitus without complications; E87.6 Hypokalemia
CPT/HCPCS: 82728; 83735; 85025

== ENCOUNTER 2021-04-30 12:26 | Outpatient (CLI) | payer MEDICARE, MEDICAID ==
[2021-04-30 12:40] LABS: BASOPHILS % (AUTO) 0.6 %; EOSINOPHILS # (AUTO) 0.1 10^3/uL (0.0-0.7); HCT - HEMATOCRIT 38.8 % (37.0-47.0); LYMPHOCYTES # (AUTO) 1.2 10^3/uL (1.5-3.5); LYMPHOCYTES % (AUTO) 16.5 %; MEAN CORPUSCULAR HEMOGLOBIN 29.1 pg (27.0-31.0); MEAN CORPUSCULAR HGB CONC 30.9 g/dL (32.0-36.0); MEAN CORPUSCULAR VOLUME 93.9 fL (81.0-99.0); MEAN PLATELET VOLUME 10.5 fL (7.9-10.8); MONOCYTES # (AUTO) 0.5 10^3/uL (0.0-1.0); NEUTROPHILS # (AUTO) 5.2 10^3/uL (1.5-6.6); NEUTROPHILS % (AUTO) 73.6 %; PLT - PLATELET COUNT 385 10^3/uL (130-450); RED BLOOD COUNT 4.13 10^6/uL (4.20-5.40); RED CELL DISTRIBUTION WIDTH 13.3 % (12.0-15.0); WHITE BLOOD COUNT 7.1 x10^3/uL (4.8-10.8)
[2021-04-30 12:52] LABS: CALCIUM 9.6 mg/dL (8.5-10.3); CREATININE 1.2 mg/dL (0.4-1.0); POTASSIUM 4.1 mmol/L (3.5-5.0)
== END 2021-04-30 12:27 | disposition home or self-care (01) ==
LOC: LAB.R 12:26
PROVIDERS: ATTEND Family Medicine
DX: E78.5 Hyperlipidemia, unspecified (principal); E87.6 Hypokalemia; E61.1 Iron deficiency
CPT/HCPCS: 80048; 82728; 85025

== ENCOUNTER 2021-06-05 11:40 | Outpatient (CLI) | payer MEDICARE, MEDICAID ==
[2021-06-05 12:11] LABS: BASOPHILS % (AUTO) 0.5 %; EOSINOPHILS # (AUTO) 0.2 10^3/uL (0.0-0.7); EOSINOPHILS % (AUTO) 1.8 %; HCT - HEMATOCRIT 36.4 % (37.0-47.0); HGB - HEMOGLOBIN 11.7 g/dL (12.0-16.0); LYMPHOCYTES # (AUTO) 1.1 10^3/uL (1.5-3.5); LYMPHOCYTES % (AUTO) 13.1 %; MEAN CORPUSCULAR HEMOGLOBIN 29.7 pg (27.0-31.0); MEAN CORPUSCULAR HGB CONC 32.1 g/dL (32.0-36.0); MEAN CORPUSCULAR VOLUME 92.4 fL (81.0-99.0); MEAN PLATELET VOLUME 9.7 fL (7.9-10.8); MONOCYTES # (AUTO) 0.5 10^3/uL (0.0-1.0); MONOCYTES % (AUTO) 6.5 %; NEUTROPHILS # (AUTO) 6.5 10^3/uL (1.5-6.6); PLT - PLATELET COUNT 385 10^3/uL (130-450); RED BLOOD COUNT 3.94 10^6/uL (4.20-5.40); RED CELL DISTRIBUTION WIDTH 13.3 % (12.0-15.0); WHITE BLOOD COUNT 8.3 x10^3/uL (4.8-10.8)
[2021-06-05 12:31] LABS: ALBUMIN 4.6 g/dL (3.2-5.5); ALBUMIN/GLOBULIN RATIO 1.5 (1.0-2.2); ALKALINE PHOSPHATASE 62 IU/L (42-121); ALT ALANINE AMINOTRANSFERASE 18 IU/L (10-60); AST ASPARTATE AMINOTRANSFERASE 25 IU/L (10-42); BILIRUBIN,TOTAL 1.3 mg/dL (0.2-1.0); BUN - BLOOD UREA NITROGEN 26 mg/dL (6-20); CARBON DIOXIDE - CO2 27 mmol/L (21-32); CHLORIDE 105 mmol/L (101-111); CHOL/HDL RATIO 3.7 (<4.4); CHOLESTEROL 272 mg/dL; GFR - MDRD 53 (>89); GLUCOSE 89 mg/dL (70-100); HDL CHOLESTEROL 73 mg/dL; LDL CHOLESTEROL,CALCULATED 171 mg/dL; LDL/HDL RATIO 2.3 (<4.4); POTASSIUM 3.9 mmol/L (3.5-5.0); SODIUM 142 mmol/L (135-145); TOTAL PROTEIN 7.6 g/dL (6.7-8.2); TRIGLYCERIDES 141 mg/dL; VLDL CHOLESTEROL 28 mg/dL
[2021-06-05 12:41] LABS: THYROID STIMULATING HORMONE 0.69 uIU/mL (0.34-5.60)
[2021-06-05 12:43] LABS: FREE T4 (FREE THYROXINE) 1.04 ng/dL (0.58-1.64)
[2021-06-05 12:47] LABS: FERRITIN 14.5 ng/mL (11.0-306.8)
[2021-06-05 13:56] LABS: ESTIMATED AVERAGE GLUCOSE 111 mg/dL (70-100); HEMOGLOBIN A1c% 5.5 % (4.27-6.07)
== END 2021-06-05 11:41 | disposition home or self-care (01) ==
LOC: LAB.R 11:40
PROVIDERS: ATTEND Family Medicine
DX: E87.6 Hypokalemia (principal); E78.5 Hyperlipidemia, unspecified; N28.9 Disorder of kidney and ureter, unspecified; D50.8 Other iron deficiency anemias; E63.9 Nutritional deficiency, unspecified; E11.9 Type 2 diabetes mellitus without complications; R63.4 Abnormal weight loss; E03.9 Hypothyroidism, unspecified
CPT/HCPCS: 80053; 80061; 82728; 83036; 83721; 84439; 84443; 84481; 85025

== ENCOUNTER 2021-11-04 01:11 | Inpatient (IN) | payer MEDICARE, MEDICAID ==
[2021-11-04] MEDS ORDERED: SODIUM CHLORIDE 0.9% 1,000 ML IV STA (01:31)
[2021-11-04] MEDS ORDERED: PANTOPRAZOLE 40 MG VIAL IVP STA ×2 (01:32→03:36)
--- NOTE | 2021-11-04 02:08 | XRAY Report ---
PROCEDURE: Chest 1 View X-Ray INDICATIONS: weak TECHNIQUE: One view of the chest was acquired. COMPARISON: None. FINDINGS: Surgical changes and devices: None. Lungs and pleura: There is bilateral perihilar pulmonary vascular prominence suggestive of mild pulm onary edema. No pleural effusions or pneumothorax. Mediastinum: Mediastinal contours appear normal. Heart size is normal. Bones and chest wall: No suspicious bony lesions. Overlying soft tissues appear unremarkable. IMPRESSION: 1. Perihilar pulmonary vascular prominence suggestive of mild pulmonary edema. Reviewed by: Mack Small MD on 11/04/2021 2:06 AM PDT Approved by: Mack Small MD on 11/04/2021 2:06 AM PDT Station ID: [id number]
[2021-11-04 02:11] LABS: BASOPHILS # (AUTO) 0.1 10^3/uL (0.0-0.1); BASOPHILS % (AUTO) 0.5 %; EOSINOPHILS # (AUTO) 0.2 10^3/uL (0.0-0.7); EOSINOPHILS % (AUTO) 1.4 %; HCT - HEMATOCRIT 25.6 % (37.0-47.0); HGB - HEMOGLOBIN 7.8 g/dL (12.0-16.0); LYMPHOCYTES # (AUTO) 0.8 10^3/uL (1.5-3.5); LYMPHOCYTES % (AUTO) 7.1 %; MEAN CORPUSCULAR HEMOGLOBIN 29.1 pg (27.0-31.0); MEAN CORPUSCULAR HGB CONC 30.5 g/dL (32.0-36.0); MEAN CORPUSCULAR VOLUME 95.5 fL (81.0-99.0); MEAN PLATELET VOLUME 9.9 fL (7.9-10.8); MONOCYTES # (AUTO) 0.6 10^3/uL (0.0-1.0); MONOCYTES % (AUTO) 5.2 %; NEUTROPHILS % (AUTO) 85.5 %; PLT - PLATELET COUNT 289 10^3/uL (130-450); RED BLOOD COUNT 2.68 10^6/uL (4.20-5.40); RED CELL DISTRIBUTION WIDTH 13.3 % (12.0-15.0); WHITE BLOOD COUNT 10.6 x10^3/uL (4.8-10.8)
[2021-11-04 02:17] LABS: INR 1.2 (0.8-1.2)
[2021-11-04 02:26] LABS: ALBUMIN 2.9 g/dL (3.2-5.5); ALBUMIN/GLOBULIN RATIO 1.3 (1.0-2.2); BILIRUBIN,TOTAL 0.9 mg/dL (0.2-1.0); CALCIUM 8.4 mg/dL (8.5-10.3); CREATININE 1.6 mg/dL (0.4-1.0); MAGNESIUM 2.1 mg/dL (1.7-2.8); POTASSIUM 4.4 mmol/L (3.5-5.0); TOTAL PROTEIN 5.1 g/dL (6.7-8.2)
[2021-11-04] MEDS ORDERED: ONDANSETRON 4 MG/2 ML VIAL IVP STA (03:17)
--- NOTE | 2021-11-04 03:19 | ED Physician Documentation ---
PD HPI GI BLEED - Stated complaint Stated Complaint: VOMITING BLOOD - Chief complaint Chief Complaint: Abd Pain - History obtained from History obtained from: EMS - Additional information Additional information: Patient is an 85-year-old female with a history of dementia and previous GI bleed presenting for evaluation of hematemesis. Patient is not able to provide any meaningful history and it was obtained from EMS. Reportedly she was witnessed ambulating in the hallway and then slid down against a wall. There is no LOC or head injury. She then vomited Bright red blood with clots. She denies pain. She has dementia at baseline and has a Court appointed guardian. 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 : Incontinence HEENT: None Psych: Anxiety Musculoskeletal: Osteoarthritis Derm: None - Past Surgical History Past Surgical History: Yes - Present Medications Home Medications: Ambulatory Orders Medication Instructions Recorded Confirmed Levothyroxine Sodium [Tirosint] 75 mcg PO QDAC 07/08/13 11/04/21 Acetaminophen 650 mg PO Q6H PRN 05/09/19 11/04/21 Cetirizine HCl 10 mg PO DAILY 05/09/19 11/04/21 Ferrous Gluconate 240 mg PO DAILY 05/09/19 11/04/21 Multivitamin W/Minerals [Theragran 1 tab PO DAILY 05/09/19 11/04/21 M] Potassium Chloride 20 meq PO DAILY 05/09/19 11/04/21 Prazosin HCl 2 mg PO DAILY 05/09/19 11/04/21 QUEtiapine [SEROquel] 25 mg PO DAILY PRN 05/09/19 11/04/21 Saccharomyces Boulardii [Florastor] 250 mg PO BIDWM 05/09/19 11/04/21 Tramadol HCl 25 mg PO DAILY 05/09/19 11/04/21 Pantoprazole Sodium [Protonix] 40 mg PO DAILY #10 tablet. 05/10/19 11/04/21 Hydrocodone/Acetaminophen 1 - 2 each PO Q6H PRN #20 tablet 07/06/19 11/04/21 [Hydrocodon-Acetaminophen 5-325] - Allergies Allergies/Adverse Reactions: Allergies Allergy/AdvReac Type Severity Reaction Status Date / Time No Known Drug Allergies Allergy Verified 11/04/21 01:18 - Social History Does the pt smoke?: No Smoking Status: Never smoker Does the pt drink ETOH?: No Does the pt have substance abuse?: No - Immunizations Immunizations are current?: Yes - POLST Patient has POLST: Yes POLST Status: DNR PD ED PE NORMAL - General General: Other (Pale, elderly, frail-appearing) - HEENT HEENT: Atraumatic, Other (Dried blood in oropharynx) - Neck Neck: Supple, no meningeal sign - Cardiac Cardiac: RRR, No murmur, Strong equal pulses - Respiratory Respiratory: No respiratory distress, Clear bilaterally - Abdomen Abdomen: Normal bowel sounds, Soft, Non tender, Non distended - Derm Derm: Warm and dry - Extremities Extremities: No edema - Neuro Neuro: No motor deficit. No: Alert and oriented X 3 Results - Vitals Vitals: Vital Signs - 24 hr 11/04/21 11/04/21 11/04/21 01:18 01:43 02:01 Temperature 36.7 C Heart Rate 87 81 82 Respiratory 14 16 15 Rate Blood Pressure 96/54 L 78/48 L 105/55 L O2 Saturation 99 96 99 11/04/21 04:00 Temperature Heart Rate 86 Respiratory 17 Rate Blood Pressure 84/50 L O2 Saturation 95 Oxygen O2 Source Room air - EKG (time done) 0148 Rate: Rate (enter#) (79) Rhythm: NSR [place]: Normal Ischemia: No: ST elevation c/w ischemia Computer interpretation: Agree with computer - Labs Labs: Laboratory Tests 11/04/21 11/04/21 11/04/21 02:01 02:01 02:01 WBC 10.6 RBC 2.68 L Hgb 7.8 L Hct 25.6 L MCV 95.5 MCH 29.1 MCHC 30.5 L RDW 13.3 Plt Count 289 MPV 9.9 Neut # (Auto) 9.0 H Lymph # (Auto) 0.8 L [place] # (Auto) 0.6 Eos # (Auto) 0.2 Baso # (Auto) 0.1 Absolute Nucleated RBC 0.00 Nucleated RBC % 0.0 PT 13.0 H INR 1.2 Sodium Potassium Chloride Carbon Dioxide Anion Gap BUN Creatinine Estimated GFR (MDRD) Glucose Lactic Acid Calcium Magnesium Total Bilirubin AST ALT Alkaline Phosphatase Troponin I High Sens B-Natriuretic Peptide Total Protein Albumin Globulin Albumin/Globulin Ratio Lipase SARS-CoV-2 (PCR) Blood Type B NEGATIVE Antibody Screen NEGATIVE Crossmatch IS Only See Detail 11/04/21 11/04/21 11/04/21 02:01 02:01 02:01 WBC RBC Hgb Hct MCV MCH MCHC RDW Plt Count MPV Neut # (Auto) Lymph # (Auto) [place] # (Auto) Eos # (Auto) Baso # (Auto) Absolute Nucleated RBC Nucleated RBC % PT INR Sodium 138 Potassium 4.4 Chloride 105 Carbon Dioxide 23 Anion Gap 10.0 BUN 93 H* Creatinine 1.6 H Estimated GFR (MDRD) 31 L Glucose 98 Lactic Acid 3.0 H* Calcium 8.4 L Magnesium 2.1 Total Bilirubin 0.9 AST 15 ALT 14 Alkaline Phosphatase 44 Troponin I High Sens 7.8 B-Natriuretic Peptide Total Protein 5.1 L Albumin 2.9 L Globulin 2.2 Albumin/Globulin Ratio 1.3 Lipase 61 H SARS-CoV-2 (PCR) Blood Type Antibody Screen Crossmatch IS Only 11/04/21 11/04/21 02:01 03:30 WBC RBC Hgb Hct MCV MCH MCHC RDW Plt Count MPV Neut # (Auto) Lymph # (Auto) [place] # (Auto) Eos # (Auto) Baso # (Auto) Absolute Nucleated RBC Nucleated RBC % PT INR Sodium Potassium Chloride Carbon Dioxide Anion Gap BUN Creatinine Estimated GFR (MDRD) Glucose Lactic Acid Calcium Magnesium Total Bilirubin AST ALT Alkaline Phosphatase Troponin I High Sens B-Natriuretic Peptide 105 H Total Protein Albumin Globulin Albumin/Globulin Ratio Lipase SARS-CoV-2 (PCR) NOT DETECTED Blood Type Antibody Screen Crossmatch IS Only PD MEDICAL DECISION MAKING - ED course ED course: Patient presenting for evaluation of hematemesis. She was hypotensive on arrival which improved with IV fluids. She did have additional episode of hematemesis while in the emergency department. Hemoglobin with significant drop from previous labs.Abdomen is soft and nontender. Patient given Protonix (increased to 80 after additional hematemesis episodes in ED). 0328 - Updated patient's guardian Hina Foster Who was aware that the patient was transported to the emergency department this evening. Ms. Mishra states that she would allow for a blood transfusion but not an endoscopy and that overall goals should be for patient's comfort. Patient's guardian is aware that no surgeon or ability to do endoscopy is available at this time at [facility] and if that is the desire then patient would need to be transferred to another facility. Guardian also does not want the patient transferred. Brielle MOONEY, witnessed conversation. [id number] - Discussed with admitting hospitalist, Dr. Page, who will admit the patient. - Critical Care Time(min): 31 Time Includes: Direct patient care, Review records, Reassess patient, Document care Departure - Departure Disposition: [facility] DC/Xfer Clinical Impression: Upper GI bleed, Hypotension due to blood loss, Anemia due to GI blood loss, Elevated lactic acid level Condition: Serious Discharge Date/Time: 11/04/21 04:49
[2021-11-04] MEDS ORDERED: ONDANSETRON 4 MG/2 ML VIAL IVP PRN (04:01)
[2021-11-04] MEDS ORDERED: SODIUM CHLORIDE FLUSH 0.9% 10 ML SYRINGE IVP PRN (04:01)
[2021-11-04] MEDS ORDERED: PROCHLORPERAZINE 10 MG/2 ML VIAL IVP PRN (04:01)
--- NOTE | 2021-11-04 04:17 | HISTORY & PHYSICAL EXAMINATION ---
Chief Complaint - Chief Complaint Chief Complaint: Vomiting blood History of Present Illness - Admitted From Admitted From:: ED - History Obtained From History obtained from: ED provider and chart review - History of Present Illness HPI Comment/Other: This is an 85-year-old white female with a history of advanced dementia, hypertension and upper GI bleed in 2019. She lives at [facility]. The entire history is obtained from the ED provider who obtained it from EMS personnel. Today the patient was walking at her longterm and slumped against the wall and went down but did not have complete syncope. She then had emesis of bright red blood. Ambulance was called. At the scene, her BP was 112/60 and HR was 78. In the ED, her BP was 96/54 with HR 80 but BP dropped to 78/48. IV saline was started and BP improved to 105/55. She had 2 more episodes of vomiting blood in the ED. Zofran iv was given as well as iv Protonix 80 mg. Her DPOA was contacted and confirmed her POLST, which states DNR and medical management with focus on comfort. No endoscopy was wanted, but blood transfusion would be OK. In 2019, she had presented with coffee ground emesis and no endoscopy was desired then either and she was treated with PPI empirically for a presumed gastric ulcer and her daily aspirin was stopped. Today in the ED, her abdomen was soft and her admission Hgb was 7.8, compared to 6 mos ago when Hgb was 11.8. She has been typed and screened and ready for transfusion. She is being admitted to the Hospitalist service to manage her hematemesis and acute GI blood loss anemia. 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 She could not provide any family hx or social hx - POLST Patient has POLST: Yes POLST Status: DNR Meds/Allgy - Home Medications Home Medications: Ambulatory Orders Medication Instructions Recorded Confirmed Levothyroxine Sodium [Tirosint] 75 mcg PO QDAC 07/08/13 11/04/21 Acetaminophen 650 mg PO Q6H PRN 05/09/19 11/04/21 Cetirizine HCl 10 mg PO DAILY 05/09/19 11/04/21 Ferrous Gluconate 240 mg PO DAILY 05/09/19 11/04/21 Multivitamin W/Minerals [Theragran 1 tab PO DAILY 05/09/19 11/04/21 M] Potassium Chloride 20 meq PO DAILY 05/09/19 11/04/21 Prazosin HCl 2 mg PO DAILY 05/09/19 11/04/21 QUEtiapine [SEROquel] 25 mg PO DAILY PRN 05/09/19 11/04/21 Saccharomyces Boulardii [Florastor] 250 mg PO BIDWM 05/09/19 11/04/21 Tramadol HCl 25 mg PO DAILY 05/09/19 11/04/21 Pantoprazole Sodium [Protonix] 40 mg PO DAILY #10 tablet.dr 05/10/19 11/04/21 Hydrocodone/Acetaminophen 1 - 2 each PO Q6H PRN #20 tablet 07/06/19 11/04/21 [Hydrocodon-Acetaminophen 5-325] - Allergies Allergies/Adverse Reactions: Allergies Allergy/AdvReac Type Severity Reaction Status Date / Time No Known Drug Allergies Allergy Verified 11/04/21 01:18 Review of Systems - All Other Systems All Other Systems: reports: Other (The patient can give no details about her symptoms because of her advanced dementia) Exam - Vital Signs Reviewed Vital Signs: Yes Vital Signs: Vital Signs x48h Temp Pulse Resp BP Pulse Ox 11/04/21 04:00 86 17 84/50 L 95 11/04/21 02:01 82 15 105/55 L 99 11/04/21 01:43 81 16 78/48 L 96 11/04/21 01:18 36.7 C 87 14 96/54 L 99 - Physical Exam General Appearance: positive: No acute distress Eyes Bilateral: positive: Normal inspection, EOMI ENT: positive: ENT inspection nml, No signs of dehydration, Other (Dried blood on oropharynx.) Neck: positive: Nml inspection, No JVD Respiratory: positive: No respiratory distress, Breath sounds nml Cardiovascular: positive: Regular rate & rhythm, No murmur Abdomen: positive: Non-tender, No distention Skin: positive: Warm, Dry, Pallor Extremities: positive: Non-tender, No pedal edema Neurologic/Psychiatric: positive: Motor nml (grossly), Disoriented to person, Disoriented to place, Disoriented to time Conclusion/Plan - Problem List (1) Hypotension due to blood loss Conclusion/Plan: Will continue iv fluids with saline for maintaining BP over 100 and will also order blood for transfusion, due to active upper GI bleeding. Her CXR was read as having early pulmonary edema, therefore will follow her I's and O's and daily weight, and administer the saline carefully. Will not infuse iv saline during blood transfusions. Will not admit to ICU but will monitor her VS q2h. (2) Pulmonary edema Conclusion/Plan: Her CXR was read as having early pulmonary edema, therefore will follow her I's and O's and daily weight, and administer the saline carefully. Will not infuse iv saline during blood transfusions. Will not admit to ICU but will monitor her VS q2h. Will order a BNP and troponin. Will follow repeat levels, if these are elevated. We have no Echo service in the hospital currently available to order an evalua tion of her LV function. (3) Hematemesis of fresh blood Conclusion/Plan: Her elevated BUN of 93 is consistent with an acute UGI bleed. A presumed bleeding gastric ulcer is likely the cause. Her med list does not state ASA or NSDAIDs, but the med list has not yet been verified or reconciled. We will stop any aspirin products or anticoagulants, if she takes these. Will continue iv Protonix bid. Will also consider po Sucralfate if her N/V stops Will order bowel rest, keep NPO except sips and chips. Will order iv Zofran and iv Compazine alternating to manage the N/V. Will not order a Gen Surgery consult for EGD, as this was specifically discussed and refused by the DPOA. Will not place ng tube unless absolutely necessary. (4) Anemia due to GI blood loss Conclusion/Plan: She has now had at least 3 episodes of witnessed bright red blood hematemesis. Her elevated BUN of 93 is consistent with an acute UGI bleed. At presentation, her Hgb is 7.8 however she has had 2 more episodes of witnessed hematemesis since that lab result and BP remains hypotensive, the last was 84/50. We will order a stat transfusion of 1 unit PRBCs. Follow her H/H every 12 hours. Transfuse again if Hgb less than 7 Treat the GI bleed as discussed above. (5) Elevated lactic acid level Conclusion/Plan: This is likely from hypoperfusion due to her persistent hypotension, as no infectious source is suspected. Will recehck at 3 hours Will continue iv crystalloids and volume expansion with blood transfusions for managing this. (6) TIMOTEO (acute kidney injury) Conclusion/Plan: Her elevated BUN of 93 is consistent with an acute UGI bleed, but the elevated creat of 1.6 is likely due to TIMOTEO, from renal hypoperfusion. Will continue iv crystalloids and order volume expansion with blood transfusions for managing this. Avoid nephrotoxins. Follow BMP daily. (7) History of hypertension Conclusion/Plan: She is persistently hypotensive here. Will hold any BP-lowering meds. (8) Heart murmur Conclusion/Plan: She has a harsh, vang-systolic murmur, heard loudest at the apex, but radiates throughout the precordium, likely mitral regurg. We have no Echo service currently available to evaluate her valves. (9) Hypothyroidism Conclusion/Plan: Will order the IV form of Synthroid today, which is given every 5 days. Will resume her po dose when she is on a diet. We will check her TSH with morning labs. (10) Dementia Conclusion/Plan: As per Hx. If she is on any meds for dementia or for behavioral disturbances, will resume their iv form or restart any oral meds, once she is taking a diet. - Lab Results Fish Bones: 11/04/21 02:01 11/04/21 02:01 - Diagnostic Imaging Results Diagnostic Imaging Results: positive: Final report reviewed - Other Other Results/Comments: Attestation: The patient is expected to be discharged or transferred to another facility within 96 hours: Yes.
[2021-11-04] MEDS ORDERED: SODIUM CHLORIDE 0.9% 500 ML IV STA (04:30)
[2021-11-04] MEDS ORDERED: DEXTROSE 5%-0.9% NACL 1,000 ML IV SCH ×4 (05:00→14:06)
[2021-11-04] MEDS ORDERED: SODIUM CHLORIDE 0.9% 500 ML IV ONE (05:32)
[2021-11-04 05:39] LABS: CALCIUM 8.4 mg/dL (8.5-10.3); CREATININE 1.4 mg/dL (0.4-1.0); POTASSIUM 4.2 mmol/L (3.5-5.0)
[2021-11-04] MEDS ORDERED: MIN OIL/DIMETHICON/COCONUT OIL 92 GM TUBE TOP PRN (05:52)
[2021-11-04] MEDS ORDERED: QUEtiapine 25 MG TABLET PO PRN (08:14)
[2021-11-04] MEDS ORDERED: HYDROcod/ACETAM 5/325 MG TABLET PO PRN (08:23)
[2021-11-04] MEDS: SODIUM CHLORIDE FLUSH 0.9% 10 ML SYRINGE IVP SCH ×2 (08:52→17:00)
[2021-11-04] MEDS: PANTOPRAZOLE 40 MG VIAL IVP SCH ×2 (08:52→20:46)
[2021-11-04] MEDS ORDERED: traMADol 50 MG TABLET PO SCH (09:00)
[2021-11-04 10:21] LABS: HCT - HEMATOCRIT 27.1 % (37.0-47.0); HGB - HEMOGLOBIN 8.6 g/dL (12.0-16.0)
[2021-11-04] MEDS: CETIRIZINE 10 MG TABLET PO SCH (11:29)
[2021-11-04] MEDS: MULTIVITAMIN W/MINERALS TABLET PO SCH (11:29)
--- NOTE | 2021-11-04 11:59 | PROVIDER PROGRESS NOTE ---
Assessment/Plan - Problem List (1) Hematemesis of fresh blood Assessment/Plan: / pt has no more hematemesis on today, pt had one unit of blood Transfusion. Hemoglobin is steady increased to 8.9 now. Per Patient's DPOA, patient is focus on comfortable, No EGD or endoscopy for patient, no transfer to higher level care for patient. We will continue H&H monitor hemoglobin, closely monitor pt if hematemesis again. pt had four times of hematemesis in ER and hospital before. We will continue intravenous Protonix for patient. (2) Hypotension due to blood loss Conclusion/Plan: Resolved, patient blood pressure is in the normal range. It is likely caused by combination of patient acute blood loss and dehydration (3) Pulmonary edema Conclusion/Plan: Patient has no acute respiratory distress, we will cautious to intravenous IV fluids special when patient had one blood transfusion. (4) Anemia due to GI blood loss Conclusion/Plan: Hemoglobin is 8.9 now. patient had 1 unit blood transfusion in the hospital. Patient had four times of hematemesis in the hospital and the ER. now Hematem esis is resolved. We will continue H&H monitor patient, Close monitor patient if bleeding as well. (5) Elevated lactic acid level Conclusion/Plan: Resolved, lactic acid is 1.2 now,This is likely from hypoperfusion due to her persistent hypotension, as no infectious source is suspected. (6) TIMOTEO (acute kidney injury) Conclusion/Plan: Improved, creatinine is 1.4 today. we will continue gentle intravenous IV fluids, continue laboratory immunologist (7) History of hypertension Conclusion/Plan: stable now (8) Heart murmur Conclusion/Plan: focus on comfort for pt. She has a harsh, vang-systolic murmur, heard loudest at the apex, but radiates throughout the precordium, likely mitral regurg. We have no Echo service currently available to evaluate her valves. (9) Hypothyroidism Conclusion/Plan: TSH is at normal range, will resume home Synthroid (10) Dementia Conclusion/Plan: As per Hx. We will resume patient's home medications - Current Meds Current Meds: Current Medications Generic Name Dose Route Start Last Admin Trade Name Freq PRN Reason Stop Dose Admin Cetirizine HCl 10 mg 11/04/21 09:00 11/04/21 11:29 Cetirizine 10 Mg Tablet PO Not Given DAILY COREY Ferrous Gluconate 324 mg 11/04/21 12:00 11/04/21 11:29 Ferrous Gluconate 324 Mg Tablet PO Not Given QDLUNCH COREY Dextrose/Sodium Chloride 1,000 mls @ 83.3 mls/hr 11/04/21 08:11 11/04/21 0 8:52 D5ns IV 11/05/21 08:11 83.3 mls/hr .Q12H1M COREY Administration Multivitamins/Minerals 1 tab 11/04/21 09:00 11/04/21 11:29 Multivitamin W/Minerals Tablet PO Not Given DAILY COREY Pantoprazole Sodium 40 mg 11/04/21 09:00 11/04/21 08:52 Pantoprazole 40 Mg Vial IVP 40 mg BID COREY Administration Prochlorperazine Edisylate 10 mg 11/04/21 04:01 11/04/21 06:02 Prochlorperazine 10 Mg/2 Ml Vial IVP 10 mg Q6HR PRN Administration Nausea / Vomiting Sodium Chloride 10 ml 11/04/21 09:00 11/04/21 08:52 Sodium Chloride Flush 0.9% 10 Ml Syringe IVP 10 ml 0100,0900,1700 COREY Administration Tramadol HCl 25 mg 11/04/21 09:00 11/04/21 11:29 Tramadol 50 Mg Tablet PO Not Given DAILY COREY - Lab Result Fish Bone Diagrams: 11/04/21 12:30 11/04/21 05:19 - Additional Planning My Orders: My Active Orders 11/04/21 Breakfast Full Liquid Diet [DIET] 11/04/21 08:11 Dextrose 5%-0.9% NaCl [D5ns] 1,000 ml IV 83.3 mls/hr 11/04/21 08:14 QUEtiapine [SEROquel] 25 mg PO DAILY PRN 11/04/21 08:23 HYDROcod/ACETAM 5/325 [[place] 5/325] 1 tab PO Q6H PRN 11/04/21 09:00 Cetirizine [ZyrTEC] 10 mg PO DAILY Multivitamin W/Minerals [Theragran M] 1 tab PO DAILY traMADol [Ultram] 25 mg PO DAILY 11/04/21 12:00 Ferrous Gluconate [Fergon] 324 mg PO QDLUNCH 11/04/21 16:00 H&H [HEMOGLOBIN AND HEMATOCRIT] [HEME] Q6H 11/04/21 22:00 H&H [HEMOGLOBIN AND HEMATOCRIT] [HEME] Q6H 11/05/21 07:00 Levothyroxine [Synthroid] 75 mcg PO QDAC Subjective - Subjective Patient Reports: Resting Comfortably Objective Vital Signs: Vital Signs - 24 hr 11/04/21 11/04/21 11/04/21 01:18 01:43 02:01 Temperature 36.7 C Heart Rate 87 81 82 Heart Rate [ Brachial] Respiratory 14 16 15 Rate Blood Pressure 96/54 L 78/48 L 105/55 L Blood Pressure [Right Brachial artery] O2 Saturation 99 96 99 11/04/21 11/04/21 11/04/21 04:00 04:38 05:13 Temperature 36.6 C Heart Rate 86 88 Heart Rate [ 90 Brachial] Respiratory 17 16 18 Rate Blood Pressure 84/50 L 94/55 L Blood Pressure 110/68 [Right Brachial artery] O2 Saturation 95 98 96 11/04/21 11/04/21 11/04/21 05:32 05:51 07:00 Temperature 36.6 C 36.7 C 36.4 C L Heart Rate 92 92 Heart Rate [ 86 Brachial] Respiratory 18 16 16 Rate Blood Pressure 97/52 L 85/71 L Blood Pressure 92/42 L [Right Brachial artery] O2 Saturation 96 11/04/21 11/04/21 11/04/21 07:13 08:30 11:00 Temperature 36.6 C 37.1 C Heart Rate 88 82 Heart Rate [ 76 Brachial] Respiratory 14 17 20 Rate Blood Pressure 98/43 L Blood Pressure 107/43 L [Right Brachial artery] O2 Saturation 96 95 Oxygen O2 Source Room air I&O (Last 24 Hrs): Intake and Output Totals x24h 11/02/21 11/03/21 11/04/21 23:59 23:59 23:59 Intake Total 1318.340 Balance 1318.340 General: Alert, No acute distress HEENT: Atraumatic Neck: Supple Lymphatic: no adenopathy Neuro: Alert, Non Focal Cardiovascular: Regular rate, Normal S1, Normal S2 Respiratory: Chest non-tender, No respiratory distress Abdomen: Normal bowel sounds, Soft Extremities: Normal pulses - Results Results: Laboratory Results WBC 10.6 x10^3/uL (4.8-10.8) 11/04/21 02:01 RBC 2.68 10^6/uL (4.20-5.40) L 11/04/21 02:01 Hgb 8.6 g/dL (12.0-16.0) L 11/04/21 10:15 Hct 27.1 % (37.0-47.0) L 11/04/21 10:15 MCV 95.5 fL (81.0-99.0) 11/04/21 02:01 MCH 29.1 pg (27.0-31.0) 11/04/21 02:01 MCHC 30.5 g/dL (32.0-36.0) L 11/04/21 02:01 RDW 13.3 % (12.0-15.0) 11/04/21 02:01 Plt Count 289 10^3/uL (130-450) 11/04/21 02:01 MPV 9.9 fL (7.9-10.8) 11/04/21 02:01 Neut # (Auto) 9.0 10^3/uL (1.5-6.6) H 11/04/21 02:01 Lymph # (Auto) 0.8 10^3/uL (1.5-3.5) L 11/04/21 02:01 [place] # (Auto) 0.6 10^3/uL (0.0-1.0) 11/04/21 02:01 Eos # (Auto) 0.2 10^3/uL (0.0-0.7) 11/04/21 02:01 Baso # (Auto) 0.1 10^3/uL (0.0-0.1) 11/04/21 02:01 Absolute Nucleated RBC 0.00 x10^3/uL 11/04/21 02:01 Nucleated RBC % 0.0 /100WBC 11/04/21 02:01 PT 13.0 secs (9.9-12.6) H 11/04/21 02:01 INR 1.2 (0.8-1.2) 11/04/21 02:01 Sodium 138 mmol/L (135-145) 11/04/21 05:19 Potassium 4.2 mmol/L (3.5-5.0) 11/04/21 05:19 Chloride 108 mmol/L (101-111) 11/04/21 05:19 Carbon Dioxide 22 mmol/L (21-32) 11/04/21 05:19 Anion Gap 8.0 (6-13) 11/04/21 05:19 BUN 97 mg/dL (6-20) H* 11/04/21 05:19 Creatinine 1.4 mg/dL (0.4-1.0) H 11/04/21 05:19 Estimated GFR (MDRD) 36 (>89) L 11/04/21 05:19 Glucose 132 mg/dL (70-100) H 11/04/21 05:19 Lactic Acid 1.2 mmol/L (0.5-2.2) 11/04/21 05:19 Calcium 8.4 mg/dL (8.5-10.3) L 11/04/21 05:19 Magnesium 2.1 mg/dL (1.7-2.8) 11/04/21 02:01 Total Bilirubin 0.9 mg/dL (0.2-1.0) 11/04/21 02:01 AST 15 IU/L (10-42) 11/04/21 02:01 ALT 14 IU/L (10-60) 11/04/21 02:01 Alkaline Phosphatase 44 IU/L (42-121) 11/04/21 02:01 Troponin I High Sens 8.0 ng/L (2.3-14.8) 11/04/21 05:19 B-Natriuretic Peptide 105 pg/mL (5-100) H 11/04/21 02:01 Total Protein 5.1 g/dL (6.7-8.2) L 11/04/21 02:01 Albumin 2.9 g/dL (3.2-5.5) L 11/04/21 02:01 Globulin 2.2 g/dL (2.1-4.2) 11/04/21 02:01 Albumin/Globulin Ratio 1.3 (1.0-2.2) 11/04/21 02:01 Lipase 61 U/L (22-51) H 11/04/21 02:01 TSH 1.13 uIU/mL (0.34-5.60) 11/04/21 05:19 SARS-CoV-2 (PCR) NOT DETECTED 04/06/22 03:30 Blood Type B NEGATIVE 11/04/21 02:01 Antibody Screen NEGATIVE 11/04/21 02:01 Crossmatch IS Only See Detail 11/04/21 02:01 ABX Reporting Has patient been on IV antibiotics over the past 48 hours?: No Current Medications - Current Medications Current Medications: Active Medications Hydrocodone Bitart/Acetaminophen (Hydrocod/Acetam 5/325 Mg Tablet) 1 tab PO Q6H PRN PRN Reason: PAIN Ascorbic Acid (Ascorbic Acid 500 Mg Tablet) 500 mg PO QDDINNER [facility], [facility]1983 Calcium Carbonate/Glycine (Calcium Carbonate Chew 500 Mg Tablet) 1,000 mg PO 0900,1400 [facility], [facility]1983 Cetirizine HCl (Cetirizine 10 Mg Tablet) 10 mg PO DAILY [facility] Last Admin: 11/04/21 11:29 Dose: Not Given Cholecalciferol (Cholecalciferol 25 Mcg Tablet) 50 mcg PO DAILY [facility] Ferrous Gluconate (Ferrous Gluconate 324 Mg Tablet) 324 mg PO QDDINNER [facility]1983 Dextrose/Sodium Chloride (D5ns) 1,000 mls @ 83.3 mls/hr IV .Q12H1M [facility] Stop: 11/05/21 14:17 Levothyroxine Sodium (Levothyroxine 75 Mcg Tablet) 75 mcg PO QDAC [facility]1983 Lidocaine (Lidocaine Patch 5%) 1 patch TOP DAILY PRN PRN Reason: PAIN Mineral Oil (Min Oil/Dimethicon/Coconut Oil 92 Gm Tube) 1 applic TOP PRN PRN PRN Reason: Skin Care Multivitamins/Minerals (Multivitamin W/Minerals Tablet) 1 tab PO DAILY [facility] Last Admin: 11/04/21 11:29 Dose: Not Given Ondansetron HCl (Ondansetron 4 Mg/2 Ml Vial) 4 mg IVP Q6HR PRN PRN Reason: Nausea / Vomiting Pantoprazole Sodium (Pantoprazole 40 Mg Vial) 40 mg IVP BID [facility] Last Admin: 11/04/21 08:52 Dose: 40 mg Prazosin HCl (Prazosin 1 Mg Capsule) 2 mg PO DAILY [facility] Prochlorperazine Edisylate (Prochlorperazine 10 Mg/2 Ml Vial) 10 mg IVP Q6HR PRN PRN Reason: Nausea / Vomiting Last Admin: 11/04/21 06:02 Dose: 10 mg Quetiapine Fumarate (Quetiapine 25 Mg Tablet) 25 mg PO DAILY PRN PRN Reason: ACUTE AGITATION Sodium Chloride (Sodium Chloride Flush 0.9% 10 Ml Syringe) 10 ml IVP PRN PRN PRN Reason: NEEDED PER PROVIDER ORDERS Sodium Chloride (Sodium Chloride Flush 0.9% 10 Ml Syringe) 10 ml IVP 0100,0900,1700 [facility] Last Admin: 11/04/21 08:52 Dose: 10 ml Tramadol HCl (Tramadol 50 Mg Tablet) 25 mg PO DAILY [facility] Last Admin: 11/04/21 11:29 Dose: Not Given Acetaminophen 650 mg PO TID 05/09/19 Cetirizine HCl 5 mg PO QPM 05/09/19 Ferrous Gluconate 240 mg PO QDDINNER 05/09/19 Multivitamin W/Minerals [Theragran M] 1 tab PO DAILY 05/09/19 Potassium Chloride 20 meq PO 1400 05/09/19 Prazosin HCl 2 mg PO DAILY 05/09/19 Tramadol HCl 50 mg PO 0900,1400 05/09/19 Ascorbic Acid 500 mg PO QDDINNER 11/04/21 Bisacodyl Supp [Dulcolax Supp] 10 mg [place] PRN PRN 11/04/21 Calcium Carbonate [Tums (Calcium Carbonate 500mg)] 1,000 mg PO 0900,1400 11/04/21 Cholecalciferol [Vitamin D3] 50 mcg PO DAILY 11/04/21 Levothyroxine [Synthroid] 75 mcg PO 1100 11/04/21 Lidocaine 1 patch TOP PRN PRN 11/04/21 Mineral Oil [Mineral Oil Enema] 1 unit [place] PRN PRN 11/04/21 Senna [Senokot] 17.2 mg PO BID 11/04/21 Senna [Senokot] 17.2 mg PO PRN PRN 11/04/21 polyethylene glycoL 3350 [Miralax] 17 gm PO PRN PRN 11/04/21
[2021-11-04] MEDS ORDERED: FERROUS GLUCONATE 324 MG TABLET PO SCH ×2 (12:00→14:08)
--- NOTE | 2021-11-04 12:19 | PHARMACY PROGRESS NOTE ---
- Best Possible Medication History Admit Date and Time: 11/04/21 0401 Processed by: Pharmacy Medication History completed: Yes Secondary Source(s): Facility MAR as ONLY source As the person ultimately responsible for medication therapy, providers are able to order a medication from an existing home medication list in [facility] via the "Reconcile Routine" prior to Confirmation of that medication by office support assistant. Such practice is discouraged except when the physician, in their clinical judgment, deems that a medical need exists for a medication without regard to previous use.
[2021-11-04 12:40] LABS: BASOPHILS # (AUTO) 0.1 10^3/uL (0.0-0.1); BASOPHILS % (AUTO) 0.4 %; EOSINOPHILS # (AUTO) 0.1 10^3/uL (0.0-0.7); EOSINOPHILS % (AUTO) 0.9 %; HCT - HEMATOCRIT 27.7 % (37.0-47.0); HGB - HEMOGLOBIN 8.9 g/dL (12.0-16.0); LYMPHOCYTES # (AUTO) 0.7 10^3/uL (1.5-3.5); LYMPHOCYTES % (AUTO) 4.6 %; MEAN CORPUSCULAR HEMOGLOBIN 30.3 pg (27.0-31.0); MEAN CORPUSCULAR HGB CONC 32.1 g/dL (32.0-36.0); MEAN CORPUSCULAR VOLUME 94.2 fL (81.0-99.0); MEAN PLATELET VOLUME 10.2 fL (7.9-10.8); MONOCYTES # (AUTO) 0.8 10^3/uL (0.0-1.0); NEUTROPHILS # (AUTO) 13.7 10^3/uL (1.5-6.6); NEUTROPHILS % (AUTO) 88.6 %; PLT - PLATELET COUNT 252 10^3/uL (130-450); RED BLOOD COUNT 2.94 10^6/uL (4.20-5.40); RED CELL DISTRIBUTION WIDTH 13.6 % (12.0-15.0); WHITE BLOOD COUNT 15.5 x10^3/uL (4.8-10.8)
[2021-11-04] MEDS ORDERED: LIDOCAINE PATCH 5% TOP PRN (14:13)
[2021-11-04] MEDS: DEXTROSE 5%-0.9% NACL 1,000 ML IV SCH ×2 (14:30→22:19)
[2021-11-04 15:05] LABS: BILIRUBIN,URINE NEGATIVE (NEGATIVE); GLUCOSE, URINE (UA) NEGATIVE (NEGATIVE); KETONES,URINE (UA) NEGATIVE (NEGATIVE); LEUKOCYTE ESTERASE, URINE TRACE (NEGATIVE); NITRITE,URINE NEGATIVE (NEGATIVE); OCCULT BLOOD,URINE MODERATE (NEGATIVE); PH,URINE 5.5 PH (5.0-7.5); PROTEIN,URINE NEGATIVE (NEGATIVE); UROBILINOGEN,URINE 0.2 (NORMAL) E.U./dL (NORMAL)
[2021-11-04 15:17] LABS: CLARITY,URINE CLEAR (CLEAR)
[2021-11-04 15:36] LABS: BACTERIA,URINE Rare /HPF (None Seen); RBC,URINE 0-5 /HPF (0-5); SQUAMOUS EPITHELIAL CELL,UR RARE Squamous (<= Few); WBC,URINE 0-3 /HPF (0-5)
[2021-11-04 16:13] LABS: HCT - HEMATOCRIT 26.1 % (37.0-47.0); HGB - HEMOGLOBIN 8.4 g/dL (12.0-16.0)
[2021-11-04] MEDS ORDERED: ASCORBIC ACID 500 MG TABLET PO SCH (17:00)
[2021-11-04] MEDS: traMADol 50 MG TABLET PO SCH (20:47)
[2021-11-04 23:01] LABS: HCT - HEMATOCRIT 24.9 % (37.0-47.0); HGB - HEMOGLOBIN 8.1 g/dL (12.0-16.0)
[2021-11-04 23:11] LABS: BASOPHILS % (AUTO) 0.4 %; EOSINOPHILS # (AUTO) 0.2 10^3/uL (0.0-0.7); EOSINOPHILS % (AUTO) 2.3 %; HCT - HEMATOCRIT 24.7 % (37.0-47.0); HGB - HEMOGLOBIN 8.1 g/dL (12.0-16.0); LYMPHOCYTES # (AUTO) 1.3 10^3/uL (1.5-3.5); LYMPHOCYTES % (AUTO) 12.3 %; MEAN CORPUSCULAR HEMOGLOBIN 30.7 pg (27.0-31.0); MEAN CORPUSCULAR HGB CONC 32.8 g/dL (32.0-36.0); MEAN CORPUSCULAR VOLUME 93.6 fL (81.0-99.0); MONOCYTES # (AUTO) 0.6 10^3/uL (0.0-1.0); MONOCYTES % (AUTO) 5.9 %; NEUTROPHILS # (AUTO) 8.3 10^3/uL (1.5-6.6); NEUTROPHILS % (AUTO) 78.6 %; PLT - PLATELET COUNT 240 10^3/uL (130-450); RED BLOOD COUNT 2.64 10^6/uL (4.20-5.40); RED CELL DISTRIBUTION WIDTH 13.7 % (12.0-15.0); WHITE BLOOD COUNT 10.5 x10^3/uL (4.8-10.8)
[2021-11-05] MEDS: SODIUM CHLORIDE FLUSH 0.9% 10 ML SYRINGE IVP SCH ×2 (00:10→09:11)
[2021-11-05] MEDS ORDERED: HALOPERIDOL 5 MG/ML VIAL IM ONE (02:06)
[2021-11-05] MEDS ORDERED: HALOPERIDOL 5 MG/ML VIAL IVP ONE ×3 (02:09→14:53)
[2021-11-05 06:42] LABS: CALCIUM 8.4 mg/dL (8.5-10.3); CREATININE 1.1 mg/dL (0.4-1.0); POTASSIUM 3.1 mmol/L (3.5-5.0)
[2021-11-05] MEDS ORDERED: LEVOTHYROXINE 75 MCG TABLET PO SCH (07:00)
[2021-11-05] MEDS ORDERED: POTASSIUM CHLORIDE 20 MEQ TABLET PO ONE (07:51)
[2021-11-05 08:02] LABS: BASOPHILS % (AUTO) 0.4 %; EOSINOPHILS # (AUTO) 0.3 10^3/uL (0.0-0.7); EOSINOPHILS % (AUTO) 3.9 %; HCT - HEMATOCRIT 25.3 % (37.0-47.0); HGB - HEMOGLOBIN 7.9 g/dL (12.0-16.0); LYMPHOCYTES % (AUTO) 12.8 %; MEAN CORPUSCULAR HEMOGLOBIN 29.7 pg (27.0-31.0); MEAN CORPUSCULAR HGB CONC 31.2 g/dL (32.0-36.0); MEAN CORPUSCULAR VOLUME 95.1 fL (81.0-99.0); MEAN PLATELET VOLUME 10.6 fL (7.9-10.8); MONOCYTES # (AUTO) 0.5 10^3/uL (0.0-1.0); MONOCYTES % (AUTO) 6.5 %; NEUTROPHILS # (AUTO) 6.1 10^3/uL (1.5-6.6); NEUTROPHILS % (AUTO) 76.1 %; PLT - PLATELET COUNT 254 10^3/uL (130-450); RED BLOOD COUNT 2.66 10^6/uL (4.20-5.40)
[2021-11-05] MEDS: MULTIVITAMIN W/MINERALS TABLET PO SCH (08:45)
[2021-11-05] MEDS: CALCIUM CARBONATE CHEW 500 MG TABLET PO SCH ×2 (08:45→13:48)
[2021-11-05] MEDS: traMADol 50 MG TABLET PO SCH (08:45)
[2021-11-05] MEDS: CETIRIZINE 10 MG TABLET PO SCH (08:45)
[2021-11-05] MEDS ORDERED: CHOLECALCIFEROL 25 MCG TABLET PO SCH (09:00)
[2021-11-05] MEDS ORDERED: PRAZOSIN 1 MG CAPSULE PO SCH (09:00)
[2021-11-05] MEDS: PANTOPRAZOLE 40 MG VIAL IVP SCH (09:11)
[2021-11-05] MEDS ORDERED: D5.45NS W/20 MEQ KCL 1,000 ML IV SCH (10:00)
[2021-11-05 12:16] LABS: HCT - HEMATOCRIT 24.9 % (37.0-47.0)
[2021-11-05] MEDS ORDERED: NITROFURANTOIN MACRO 100 MG CAPSULE PO SCH (13:00)
--- NOTE | 2021-11-05 13:41 | PROVIDER PROGRESS NOTE ---
Assessment/Plan - Problem List (1) Confused Assessment/Plan: 11/05 pt is Confused and agitated. Patient had a history of advanced dementia. pt had Haldol on last night. Today patient is still confused, she pulled twice of her intravenous port, She refused to take medications per nurse report, She did not eat her breakfast and lunch, She only took a few bites on yesterday. I tried to call patient's DPOA at phone [phone] For update patient's medical conditions and care plan, Leave a message. Because the patient is very agitated and confused, we will give 1 more time Haldol, resume patient home Seroquel at night, She had Seroquel as needed in the chart before. (2)Anorexia She did not eat her breakfast and lunch, She only took a few bites on yesterday. Patient has a history of advanced dementia. I tried to call patient's DPOA at phone [phone] For update patient's medical conditions and care plan, Leave a message. (3) Hematemesis of fresh blood Assessment/Plan: 11/05 Resolved, patient has no more hematemesis. Continue intravenous protonix 11/04 pt has no more hematemesis on today, pt had one unit of blood Transfusion. Hemoglobin is steady increased to 8.9 now. Per Patient's DPOA, patient is focus on comfortable, No EGD or endoscopy for patient, no transfer to higher level care for patient. We will continue H&H monitor hemoglobin, closely monitor pt if hematemesis again. pt had four times of hematemesis in ER and hospital before. We will continue intravenous Protonix for patient. (4) Hypotension due to blood loss Conclusion/Plan: Resolved, patient blood pressure is in the normal range. It is likely caused by combination of patient acute blood loss and dehydration (5) Pulmonary edema Conclusion/Plan: Patient has no acute respiratory distress, we will cautious to intravenous IV fluids special when patient had one blood transfusion. (6) Anemia due to GI blood loss Conclusion/Plan: 47 Hemoglobin is 8, it is stable. Patient has no more hematemesis or black stool. Hemoglobin is 8.9 now. patient had 1 unit blood transfusion in the hospital. Patient had four times of hematemesis in the hospital and the ER. now Hematemesis is resolved. We will continue H&H monitor patient, Close monitor pa camila if bleeding as well. (7) Elevated lactic acid level Conclusion/Plan: Resolved, lactic acid is 1.2 now,This is likely from hypoperfusion due to her persistent hypotension, as no infectious source is suspected. (8) TIMOTEO (acute kidney injury) Conclusion/Plan: 47, nearly resolved, patient's creatinine is 1.1 on today, Continue gentle intravenous IV fluids and crime laboratory analyst Improved, creatinine is 1.4 today. we will continue gentle intravenous IV fluids, continue crime laboratory analyst (9) History of hypertension Conclusion/Plan: stable now (10) UTI UA culture and sensitivity study show positive E. coli. Given patient is very confused, and a history of advanced dementia, We will give patient p.o. antibiotics Macrobid (11) Hypothyroidism Conclusion/Plan: TSH is at normal range, will resume home Synthroid (12) Dementia Conclusion/Plan: Patient has a history of advanced dementia. We will continue support, we called patient's DPOA, Left a message and will discuss the care plan - Current Meds Current Meds: Current Medications Generic Name Dose Route Start Last Admin Trade Name Anne PRN Reason Stop Dose Admin Ascorbic Acid 500 mg 11/04/21 17:00 11/04/21 17:00 Ascorbic Acid 500 Mg Tablet PO Not Given QDDINNER [facility] Calcium Carbonate/Glycine 1,000 mg 11/05/21 09:00 11/05/21 08:45 Calcium Carbonate Chew 500 Mg Tablet PO 1,000 mg 0900,1400 [facility] Administration Cetirizine HCl 10 mg 11/04/21 09:00 11/05/21 08:45 Cetirizine 10 Mg Tablet PO 10 mg DAILY [facility] Administration Cholecalciferol 50 mcg 11/05/21 09:00 11/05/21 08:45 Cholecalciferol 25 Mcg Tablet PO 50 mcg DAILY [facility] Administration Ferrous Gluconate 324 mg 11/04/21 14:08 11/04/21 17:00 Ferrous Gluconate 324 Mg Tablet PO Not Given QDDINNER [facility] Potassium Chloride/Dextrose/Sod Cl 1,000 mls @ 83.333 mls/hr 11/05/21 10:00 11/05/21 10:40 D5.45ns W/20 Meq Kcl IV 11/06/21 09:59 83.333 mls/hr .Q12H [facility] Administration Levothyroxine Sodium 75 mcg 11/05/21 07:00 11/05/21 06:01 Levothyroxine 75 Mcg Tablet PO 75 mcg QDAC [facility] Administration Multivitamins/Minerals 1 tab 11/04/21 09:00 11/05/21 08:45 Multivitamin W/Minerals Tablet PO 1 tab DAILY [facility] Administration Pantoprazole Sodium 40 mg 11/04/21 09:00 11/05/21 09:11 Pantoprazole 40 Mg Vial IVP 40 mg BID [facility] Administration Prazosin HCl 2 mg 11/05/21 09:00 11/05/21 08:45 Prazosin 1 Mg Capsule PO 2 mg DAILY [facility] Administration Prochlorperazine Edisylate 10 mg 11/04/21 04:01 11/04/21 06:02 Prochlorperazine 10 Mg/2 Ml Vial IVP 10 mg Q6HR PRN Administration Nausea / Vomiting Sodium Chloride 10 ml 11/04/21 09:00 11/05/21 09:11 Sodium Chloride Flush 0.9% 10 Ml Syringe IVP 10 ml 0100,0900,1700 [facility] Administration Tramadol HCl 50 mg 11/04/21 21:00 11/05/21 08:45 Tramadol 50 Mg Tablet PO 50 mg BID [facility] Administration - Lab Result Fish Bone Diagrams: 11/05/21 12:11 11/05/21 06:21 - Additional Planning My Orders: My Active Orders 11/04/21 14:08 Ferrous Gluconate [Fergon] 324 mg PO QDDINNER 11/04/21 14:13 Lidocaine Patch 5% [Lidoderm Patch] 1 patch TOP DAILY PRN 11/04/21 14:33 CUL, URINE [RM] Urgent 11/04/21 17:00 Ascorbic Acid [Vitamin C] 500 mg PO QDDINNER 11/04/21 21:00 traMADol [Ultram] 50 mg PO BID 11/05/21 Breakfast Soft (Low Fiber) Diet [DIET] 11/05/21 07:00 Levothyroxine [Synthroid] 75 mcg PO QDAC 11/05/21 09:00 Calcium Carbonate [Tums] 1,000 mg PO 0900,1400 Cholecalciferol [Vitamin D3] 50 mcg PO DAILY Prazosin [Minipress] 2 mg PO DAILY 11/05/21 10:00 D5.45ns W/20 Meq KCl 1,000 ml IV 83.333 mls/hr 11/05/21 13:00 Nitrofurantoin [Macrobid] 100 mg PO BID 11/05/21 20:00 H&H [HEMOGLOBIN AND HEMATOCRIT] [HEME] Q8H 11/05/21 21:00 QUEtiapine [SEROquel] 25 mg PO QPM 11/06/21 05:00 CBC - COMP BLD CT W/AUTO DIFF [HEME] DAILYLAB 11/07/21 05:00 CBC - COMP BLD CT W/AUTO DIFF [HEME] DAILYLAB 11/08/21 05:00 CBC - COMP BLD CT W/AUTO DIFF [HEME] DAILYLAB 11/09/21 05:00 CBC - COMP BLD CT W/AUTO DIFF [HEME] DAILYLAB Subjective - Subjective Nursing Reports: Confused Objective Vital Signs: Vital Signs - 24 hr 11/04/21 11/04/21 11/04/21 15:47 20:20 23:43 Temperature 36.6 C 36.5 C 36.3 C L Heart Rate [ 75 72 69 Brachial] Respiratory 16 20 18 Rate Blood Pressure [Left Radial artery] Blood Pressure 148/58 H 141/55 H 131/40 H [Right Brachial artery] O2 Saturation 96 96 96 11/05/21 11/05/21 11/05/21 06:12 09:00 12:38 Temperature 36.6 C 36.8 C 36.6 C Heart Rate [ 67 62 87 Brachial] Respiratory 20 12 14 Rate Blood Pressure 111/57 L [Left Radial artery] Blood Pressure 95/83 H 127/52 L 115/83 H [Right Brachial artery] O2 Saturation 95 100 98 Oxygen O2 Source Room air I&O (Last 24 Hrs): Intake and Output Totals x24h 11/03/21 11/04/21 11/05/21 23:59 23:59 23:59 Intake Total 3073.851 722.037 Output Total 500 Balance 2573.851 722.037 General: Alert HEENT: Atraumatic Neck: Supple Neuro: Alert Cardiovascular: Regular rate, Normal S1, Normal S2 Respiratory: Chest non-tender, No respiratory distress Abdomen: Normal bowel sounds, Soft Extremities: Normal pulses - Results Results: Laboratory Results WBC 8.0 x10^3/uL (4.8-10.8) 11/05/21 06:21 RBC 2.66 10^6/uL (4.20-5.40) L 11/05/21 06:21 Hgb 8.0 g/dL (12.0-16.0) L 11/05/21 12:11 Hct 24.9 % (37.0-47.0) L 11/05/21 12:11 MCV 95.1 fL (81.0-99.0) 11/05/21 06:21 MCH 29.7 pg (27.0-31.0) 11/05/21 06:21 MCHC 31.2 g/dL (32.0-36.0) L 11/05/21 06:21 RDW 14.0 % (12.0-15.0) 11/05/21 06:21 Plt Count 254 10^3/uL (130-450) 11/05/21 06:21 MPV 10.6 fL (7.9-10.8) 11/05/21 06:21 Neut # (Auto) 6.1 10^3/uL (1.5-6.6) 11/05/21 06:21 Lymph # (Auto) 1.0 10^3/uL (1.5-3.5) L 11/05/21 06:21 [place] # (Auto) 0.5 10^3/uL (0.0-1.0) 11/05/21 06:21 Eos # (Auto) 0.3 10^3/uL (0.0-0.7) 11/05/21 06:21 Baso # (Auto) 0.0 10^3/uL (0.0-0.1) 11/05/21 06:21 Absolute Nucleated RBC 0.00 x10^3/uL 11/05/21 06:21 Nucleated RBC % 0.0 /100WBC 11/05/21 06:21 PT 13.0 secs (9.9-12.6) H 11/04/21 02:01 INR 1.2 (0.8-1.2) 11/04/21 02:01 Sodium 143 mmol/L (135-145) 11/05/21 06:21 Potassium 3.1 mmol/L (3.5-5.0) L 11/05/21 06:21 Chloride 113 mmol/L (101-111) H 11/05/21 06:21 Carbon Dioxide 23 mmol/L (21-32) 11/05/21 06:21 Anion Gap 7.0 (6-13) 11/05/21 06:21 BUN 55 mg/dL (6-20) H 11/05/21 06:21 Creatinine 1.1 mg/dL (0.4-1.0) H 11/05/21 06:21 Estimated GFR (MDRD) 47 (>89) L 11/05/21 06:21 Glucose 97 mg/dL (70-100) 11/05/21 06:21 Lactic Acid 1.2 mmol/L (0.5-2.2) 11/04/21 05:19 Calcium 8.4 mg/dL (8.5-10.3) L 11/05/21 06:21 Magnesium 2.1 mg/dL (1.7-2.8) 11/04/21 02:01 Total Bilirubin 0.9 mg/dL (0.2-1.0) 11/04/21 02:01 AST 15 IU/L (10-42) 11/04/21 02:01 ALT 14 IU/L (10-60) 11/04/21 02:01 Alkaline Phosphatase 44 IU/L (42-121) 11/04/21 02:01 Troponin I High Sens 8.0 ng/L (2.3-14.8) 11/04/21 05:19 B-Natriuretic Peptide 105 pg/mL (5-100) H 11/04/21 02:01 Total Protein 5.1 g/dL (6.7-8.2) L 11/04/21 02:01 Albumin 2.9 g/dL (3.2-5.5) L 11/04/21 02:01 Globulin 2.2 g/dL (2.1-4.2) 11/04/21 02:01 Albumin/Globulin Ratio 1.3 (1.0-2.2) 11/04/21 02:01 Lipase 61 U/L (22-51) H 11/04/21 02:01 TSH 1.13 uIU/mL (0.34-5.60) 11/04/21 05:19 Urine Color YELLOW 11/04/21 14:33 Urine Clarity CLEAR (CLEAR) 11/04/21 14:33 Urine pH 5.5 PH (5.0-7.5) 11/04/21 14:33 Ur Specific [place] 1.015 (1.002-1.030) 11/04/21 14:33 Urine Protein NEGATIVE mg/dL (NEGATIVE) 11/04/21 14:33 Urine Glucose (UA) NEGATIVE mg/dL (NEGATIVE) 11/04/21 14:33 Urine Ketones NEGATIVE mg/dL (NEGATIVE) 11/04/21 14:33 Urine Occult Blood MODERATE (NEGATIVE) H 11/04/21 14:33 Urine Nitrite NEGATIVE (NEGATIVE) 11/04/21 14:33 Urine Bilirubin NEGATIVE (NEGATIVE) 11/04/21 14:33 Urine Urobilinogen 0.2 (NORMAL) E.U./dL (NORMAL) 11/04/21 14:33 Ur Leukocyte Esterase TRACE (NEGATIVE) H 11/04/21 14:33 Urine RBC 0-5 /HPF (0-5) 11/04/21 14:33 Urine WBC 0-3 /HPF (0-5) 11/04/21 14:33 Ur Squamous Epith Cells RARE Squamous (<= Few) 11/04/21 14:33 Urine Bacteria Rare /HPF (None Seen) 11/04/21 14:33 Urine Culture Comments INDICATED 11/04/21 14:33 SARS-CoV-2 (PCR) NOT DETECTED 11/04/21 03:30 Blood Type B NEGATIVE 11/04/21 02:01 Antibody Screen NEGATIVE 11/04/21 02:01 Crossmatch IS Only See Detail 11/04/21 02:01 ABX Reporting Has patient been on IV antibiotics over the past 48 hours?: Yes Current Medications - Current Medications Current Medications: Active Medications Ascorbic Acid (Ascorbic Acid 500 Mg Tablet) 500 mg PO QDDINNER [facility] Last Admin: 11/04/21 17:00 Dose: Not Given Calcium Carbonate/Glycine (Calcium Carbonate Chew 500 Mg Tablet) 1,000 mg PO 0900,1400 [facility] Last Admin: 11/05/21 13:48 Dose: Not Given Cetirizine HCl (Cetirizine 10 Mg Tablet) 10 mg PO DAILY [facility] Last Admin: 11/05/21 08:45 Dose: 10 mg Cholecalciferol (Cholecalciferol 25 Mcg Tablet) 50 mcg PO DAILY [facility] Last Admin: 11/05/21 08:45 Dose: 50 mcg Ferrous Gluconate (Ferrous Gluconate 324 Mg Tablet) 324 mg PO QDDINNER [facility] Last Admin: 11/04/21 17:00 Dose: Not Given Potassium Chloride/Dextrose/Sod Cl (D5.45ns W/20 Meq Kcl) 1,000 mls @ 83.333 mls/hr IV .Q12H [facility] Stop: 11/06/21 09:59 Last Admin: 11/05/21 10:40 Dose: 83.333 mls/hr Levothyroxine Sodium (Levothyroxine 75 Mcg Tablet) 75 mcg PO QDAC [facility] Last Admin: 11/05/21 06:01 Dose: 75 mcg Lidocaine (Lidocaine Patch 5%) 1 patch TOP DAILY PRN PRN Reason: PAIN Mineral Oil (Min Oil/Dimethicon/Coconut Oil 92 Gm Tube) 1 applic TOP PRN PRN PRN Reason: Skin Care Multivitamins/Minerals (Multivitamin W/Minerals Tablet) 1 tab PO DAILY [facility] Last Admin: 11/05/21 08:45 Dose: 1 tab Nitrofurantoin (Nitrofurantoin Macro 100 Mg Capsule) 100 mg PO BID [facility] Last Admin: 11/05/21 13:48 Dose: Not Given Ondansetron HCl (Ondansetron 4 Mg/2 Ml Vial) 4 mg IVP Q6HR PRN PRN Reason: Nausea / Vomiting Pantoprazole Sodium (Pantoprazole 40 Mg Vial) 40 mg IVP BID [facility] Last Admin: 11/05/21 09:11 Dose: 40 mg Prazosin HCl (Prazosin 1 Mg Capsule) 2 mg PO DAILY [facility] Last Admin: 11/05/21 08:45 Dose: 2 mg Prochlorperazine Edisylate (Prochlorperazine 10 Mg/2 Ml Vial) 10 mg IVP Q6HR PRN PRN Reason: Nausea / Vomiting Last Admin: 11/04/21 06:02 Dose: 10 mg Quetiapine Fumarate (Quetiapine 25 Mg Tablet) 25 mg PO QPM [facility] Sodium Chloride (Sodium Chloride Flush 0.9% 10 Ml Syringe) 10 ml IVP PRN PRN PRN Reason: NEEDED PER PROVIDER ORDERS Sodium Chloride (Sodium Chloride Flush 0.9% 10 Ml Syringe) 10 ml IVP 0100,0900,1700 [facility] Last Admin: 11/05/21 09:11 Dose: 10 ml Tramadol HCl (Tramadol 50 Mg Tablet) 50 mg PO BID [facility] Last Admin: 11/05/21 08:45 Dose: 50 mg Acetaminophen 650 mg PO TID 05/09/19 Cetirizine HCl 5 mg PO QPM 05/09/19 Ferrous Gluconate 240 mg PO QDDINNER 05/09/19 Multivitamin W/Minerals [Theragran M] 1 tab PO DAILY 05/09/19 Potassium Chloride 20 meq PO 1400 05/09/19 Prazosin HCl 2 mg PO DAILY 05/09/19 Tramadol HCl 50 mg PO 0900,1400 05/09/19 Ascorbic Acid 500 mg PO QDDINNER 11/04/21 Bisacodyl Supp [Dulcolax Supp] 10 mg SC PRN PRN 11/04/21 Calcium Carbonate [Tums (Calcium Carbonate 500mg)] 1,000 mg PO 0900,1400 Cholecalciferol [Vitamin D3] 50 mcg PO DAILY 11/04/21 Levothyroxine [Synthroid] 75 mcg PO 1100 11/04/21 Lidocaine 1 patch TOP PRN PRN 11/04/21 Mineral Oil [Mineral Oil Enema] 1 unit SC PRN PRN 11/04/21 Senna [Senokot] 17.2 mg PO BID 11/04/21 Senna [Senokot] 17.2 mg PO PRN PRN 11/04/21 polyethylene glycoL 3350 [Miralax] 17 gm PO PRN PRN 11/04/21
[2021-11-05] MEDS ORDERED: MORPHINE SOL 10 MG/0.5 ML ORAL SYRINGE PO PRN (14:59)
[2021-11-05] MEDS ORDERED: LORazepam 0.5 MG TABLET PO PRN (15:00)
[2021-11-05] MEDS ORDERED: QUEtiapine 25 MG TABLET PO SCH (21:00)
[2021-11-06] MEDS ORDERED: GI COCKTAIL 120 ML BOTTLE PO PRN (09:27)
[2021-11-06] MEDS ORDERED: HALOPERIDOL 5 MG/ML VIAL IM ONE (10:25)
[2021-11-06] MEDS ORDERED: HALOPERIDOL 5 MG/ML VIAL IVP PRN (10:26)
[2021-11-06] MEDS ORDERED: LORazepam 0.5 MG TABLET SL PRN ×2 (10:27→18:04)
[2021-11-06] MEDS: PANTOPRAZOLE 40 MG TABLET PO SCH (11:02)
[2021-11-06] MEDS: ONDANSETRON ODT 4 MG TABLET TL SCH ×4 (11:02→23:34)
[2021-11-06] MEDS ORDERED: QUEtiapine 25 MG TABLET PO SCH ×2 (11:56→22:00)
--- NOTE | 2021-11-06 14:21 | PROVIDER PROGRESS NOTE ---
Assessment/Plan - Problem List (1) Agitation due to dementia Assessment/Plan: 11/06 pt is very agitated in the morning, likely secondary to her advanced dementia. pt refused to eat, pulled out IV line, and refused medications per nurse's report, with pt's hx of advanced dementia, pt show poor quality of life. DPOA hope to have comfortable care and hospice care for pt. we consulted with hospice care. hospice care provider recommended pt does not meet hospice care criteria now, and recommended palliative care. we order palliative care, I called palliate care provider, she will see pt in Tuesday or followup with [facility] after referred from pt's provider. hospice care provider recommended low dosage of Seroquel. we order comfortable care measure medications, and add Seroquel to control of pt's agitations. after pt's agitation is under of control, pt may d/c on tomorrow to [facility], followup with palliative and hospice care. 11/05 pt is Confused and agitated. Patient had a history of advanced dementia. pt had Haldol on last night. Today patient is still confused, she pulled twice of her intravenous port, She refused to take medications per nurse report, She did not eat her breakfast and lunch, She only took a few bites on yesterday. I tried to call patient's DPOA at phone [phone] For update patient's medical conditions and care plan, Leave a message. Because the patient is very agitated and confused, we will give 1 more time Haldol, resume patient home Seroquel at night, She had Seroquel as needed in the chart before. (2)Anorexia 11/06 pt continue to refused to eat, followup with comfort care, palliative and hospice care She did not eat her breakfast and lunch, She only took a few bites on yesterday. Patient has a history of advanced dementia. I tried to call patient's DPOA at phone [phone] For update patient's medical conditions and care plan, Leave a message. (3) Hematemesis of fresh blood Assessment/Plan: 11/05 Resolved, patient has no more hematemesis. Continue intravenous protonix 11/04 pt has no more hematemesis on today, pt had one unit of blood Transfusion. Hemoglobin is steady increased to 8.9 now. Per Patient's DPOA, patient is focus on comfortable, No EGD or endoscopy for patient, no transfer to higher level care for patient. We will continue H&H monitor hemoglobin, closely monitor pt if hematemesis again. pt had four times of hematemesis in ER and hospital before. We will continue intravenous Protonix for patient. (4) Hypotension due to blood loss Conclusion/Plan: Resolved, patient blood pressure is in the normal range. It is likely caused by combination of patient acute blood loss and dehydration (5) Pulmonary edema Conclusion/Plan: Patient has no acute respiratory distress, we will cautious to intravenous IV fluids special when patient had one blood transfusion. (6) Anemia due to GI blood loss Conclusion/Plan: 47 Hemoglobin is 8, it is stable. Patient has no more hematemesis or black stool. Hemoglobin is 8.9 now. patient had 1 unit blood transfusion in the hospital. Patient had four times of hematemesis in the hospital and the ER. now Hematemesis is resolved. We will continue H&H monitor patient, Close monitor patient if bleeding as well. (7) Elevated lactic acid level Conclusion/Plan: Resolved, lactic acid is 1.2 now,This is likely from hypoperfusion due to her persistent hypotension, as no infectious source is suspected. (8) TIMOTEO (acute kidney injury) Conclusion/Plan: 47, nearly resolved, patient's creatinine is 1.1 on today, Continue gentle intravenous IV fluids and supervisor dental laboratory Improved, creatinine is 1.4 today. we will continue gentle intravenous IV fluids, continue supervisor dental laboratory (9) History of hypertension Conclusion/Plan: stable now (10) UTI UA culture and sensitivity study show positive E. coli. Given patient is very confused, and a history of advanced dementia, We will give patient p.o. antibiotics Macrobid (11) Hypothyroidism Conclusion/Plan: TSH is at normal range, will resume home Synthroid (12) Dementia Conclusion/Plan: Patient has a history of advanced dementia. DPOA hope to have comfort care and hospice care for pt. - Current Meds Current Meds: Current Medications Generic Name Dose Route Start Last Admin Trade Name Freq PRN Reason Stop Dose Admin Morphine Sulfate 10 mg 11/05/21 14:59 11/05/21 19:59 Morphine Alethea 10 Mg/0.5 Ml Oral Syringe PO 10 mg Q2HR PRN Administration PAIN Ondansetron HCl 4 mg 11/06/21 09:27 11/06/21 11:38 Ondansetron Odt 4 Mg Tablet TL Not Given Q6HR COREY Pantoprazole Sodium 40 mg 11/06/21 10:00 11/06/21 11:02 Pantoprazole 40 Mg Tablet PO 40 mg QDAC COREY Administration - Lab Result Fish Bone Diagrams: 11/05/21 12:11 11/05/21 06:21 - Additional Planning My Orders: My Active Orders 11/05/21 14:59 Morphine Oral Soln [Roxanol] 10 mg PO Q2HR PRN 11/05/21 15:19 Comfort Care [RC] QSHIFT 11/06/21 Palliative Care Consult [CONS] Routine 11/06/21 10:26 Haloperidol Inj [Haldol Inj] 1 mg IVP Q6H PRN 11/06/21 10:27 LORazepam [Ativan] 0.5 mg SL Q6H PRN 11/06/21 Lunch Soft (Low Fiber) Diet [DIET] 11/06/21 22:00 QUEtiapine [SEROquel] 25 mg PO TID Subjective - Subjective Nursing Reports: Confused Objective Vital Signs: Vital Signs - 24 hr 11/05/21 11/06/21 15:46 09:44 Temperature 36.3 C L 36.6 C Heart Rate [ 60 52 L Brachial] Respiratory 20 19 Rate Blood Pressure 143/50 H 140/44 H [Left Brachial artery] O2 Saturation 96 98 Oxygen O2 Source Room air I&O (Last 24 Hrs): Intake and Output Totals x24h 11/04/21 11/05/21 11/06/21 23:59 23:59 23:59 Intake Total 3073.851 1217.597 240 Output Total 500 200 300 Balance 2573.851 1017.597 -60 General: Alert, Other (agitated) HEENT: Atraumatic Neck: Supple Lymphatic: no adenopathy Neuro: Alert Cardiovascular: Regular rate, Normal S1, Normal S2 Respiratory: Chest non-tender, No respiratory distress Abdomen: Normal bowel sounds, Soft Extremities: Normal pulses - Results Results: Laboratory Results WBC 8.0 x10^3/uL (4.8-10.8) 11/05/21 06:21 RBC 2.66 10^6/uL (4.20-5.40) L 11/05/21 06:21 Hgb 8.0 g/dL (12.0-16.0) L 11/05/21 12:11 Hct 24.9 % (37.0-47.0) L 11/05/21 12:11 MCV 95.1 fL (81.0-99.0) 11/05/21 06:21 MCH 29.7 pg (27.0-31.0) 11/05/21 06:21 MCHC 31.2 g/dL (32.0-36.0) L 11/05/21 06:21 RDW 14.0 % (12.0-15.0) 11/05/21 06:21 Plt Count 254 10^3/uL (130-450) 11/05/21 06:21 MPV 10.6 fL (7.9-10.8) 11/05/21 06:21 Neut # (Auto) 6.1 10^3/uL (1.5-6.6) 11/05/21 06:21 Lymph # (Auto) 1.0 10^3/uL (1.5-3.5) L 11/05/21 06:21 [place] # (Auto) 0.5 10^3/uL (0.0-1.0) 11/05/21 06:21 Eos # (Auto) 0.3 10^3/uL (0.0-0.7) 11/05/21 06:21 Baso # (Auto) 0.0 10^3/uL (0.0-0.1) 11/05/21 06:21 Absolute Nucleated RBC 0.00 x10^3/uL 11/05/21 06:21 Nucleated RBC % 0.0 /100WBC 11/05/21 06:21 PT 13.0 secs (9.9-12.6) H 11/04/21 02:01 INR 1.2 (0.8-1.2) 11/04/21 02:01 Sodium 143 mmol/L (135-145) 11/05/21 06:21 Potassium 3.1 mmol/L (3.5-5.0) L 11/05/21 06:21 Chloride 113 mmol/L (101-111) H 11/05/21 06:21 Carbon Dioxide 23 mmol/L (21-32) 11/05/21 06:21 Anion Gap 7.0 (6-13) 11/05/21 06:21 BUN 55 mg/dL (6-20) H 11/05/21 06:21 Creatinine 1.1 mg/dL (0.4-1.0) H 11/05/21 06:21 Estimated GFR (MDRD) 47 (>89) L 11/05/21 06:21 Glucose 97 mg/dL (70-100) 11/05/21 06:21 Lactic Acid 1.2 mmol/L (0.5-2.2) 11/04/21 05:19 Calcium 8.4 mg/dL (8.5-10.3) L 11/05/21 06:21 Magnesium 2.1 mg/dL (1.7-2.8) 11/04/21 02:01 Total Bilirubin 0.9 mg/dL (0.2-1.0) 11/04/21 02:01 AST 15 IU/L (10-42) 11/04/21 02:01 ALT 14 IU/L (10-60) 11/04/21 02:01 Alkaline Phosphatase 44 IU/L (42-121) 11/04/21 02:01 Troponin I High Sens 8.0 ng/L (2.3-14.8) 11/04/21 05:19 B-Natriuretic Peptide 105 pg/mL (5-100) H 11/04/21 02:01 Total Protein 5.1 g/dL (6.7-8.2) L 11/04/21 02:01 Albumin 2.9 g/dL (3.2-5.5) L 11/04/21 02:01 Globulin 2.2 g/dL (2.1-4.2) 11/04/21 02:01 Albumin/Globulin Ratio 1.3 (1.0-2.2) 11/04/21 02:01 Lipase 61 U/L (22-51) H 11/04/21 02:01 TSH 1.13 uIU/mL (0.34-5.60) 11/04/21 05:19 Urine Color YELLOW 11/04/21 14:33 Urine Clarity CLEAR (CLEAR) 11/04/21 14:33 Urine pH 5.5 PH (5.0-7.5) 11/04/21 14:33 Ur Specific Deputy 1.015 (1.002-1.030) 11/04/21 14:33 Urine Protein NEGATIVE mg/dL (NEGATIVE) 11/04/21 14:33 Urine Glucose (UA) NEGATIVE mg/dL (NEGATIVE) 11/04/21 14:33 Urine Ketones NEGATIVE mg/dL (NEGATIVE) 11/04/21 14:33 Urine Occult Blood MODERATE (NEGATIVE) H 11/04/21 14:33 Urine Nitrite NEGATIVE (NEGATIVE) 11/04/21 14:33 Urine Bilirubin NEGATIVE (NEGATIVE) 11/04/21 14:33 Urine Urobilinogen 0.2 (NORMAL) E.U./dL (NORMAL) 11/04/21 14:33 Ur Leukocyte Esterase TRACE (NEGATIVE) H 11/04/21 14:33 Urine RBC 0-5 /HPF (0-5) 11/04/21 14:33 Urine WBC 0-3 /HPF (0-5) 11/04/21 14:33 Ur Squamous Epith Cells RARE Squamous (<= Few) 11/04/21 14:33 Urine Bacteria Rare /HPF (None Seen) 11/04/21 14:33 Urine Culture Comments INDICATED 11/04/21 14:33 SARS-CoV-2 (PCR) NOT DETECTED 11/04/21 03:30 Blood Type B NEGATIVE 11/04/21 02:01 Antibody Screen NEGATIVE 11/04/21 02:01 Crossmatch IS Only See Detail 11/04/21 02:01 ABX Reporting Has patient been on IV antibiotics over the past 48 hours?: No Current Medications - Current Medications Current Medications: Active Medications Haloperidol (Haloperidol 5 Mg/Ml Vial) 1 mg IVP Q6H PRN PRN Reason: Agitation Lorazepam (Lorazepam 0.5 Mg Tablet) 0.5 mg SL Q6H PRN PRN Reason: Anxiety Morphine Sulfate (Morphine Alethea 10 Mg/0.5 Ml Oral Syringe) 10 mg PO Q2HR PRN PRN Reason: PAIN Last Admin: 11/05/21 19:59 Dose: 10 mg Multi-Ingredient Mouthwash/Gargle (Gi Cocktail 120 Ml Bottle) 30 ml PO Q4H PRN PRN Reason: Abdominal Pain Ondansetron HCl (Ondansetron Odt 4 Mg Tablet) 4 mg TL Q6HR COREY Last Admin: 11/06/21 11:38 Dose: Not Given Pantoprazole Sodium (Pantoprazole 40 Mg Tablet) 40 mg PO QDAC [facility] Last Admin: 11/06/21 11:02 Dose: 40 mg Quetiapine Fumarate (Quetiapine 25 Mg Tablet) 25 mg PO TID [facility] Acetaminophen 650 mg PO TID 05/09/19 Cetirizine HCl 5 mg PO QPM 05/09/19 Ferrous Gluconate 240 mg PO QDDINNER 05/09/19 Multivitamin W/Minerals [Theragran M] 1 tab PO DAILY 05/09/19 Potassium Chloride 20 meq PO 1400 05/09/19 Prazosin HCl 2 mg PO DAILY 05/09/19 Tramadol HCl 50 mg PO 0900,1400 05/09/19 Ascorbic Acid 500 mg PO QDDINNER 11/04/21 Bisacodyl Supp [Dulcolax Supp] [address] PRN PRN 11/04/21 Calcium Carbonate [Tums (Calcium Carbonate 500mg)] 1,000 mg PO 0900,1400 11/04/21 Cholecalciferol [Vitamin D3] 50 mcg PO DAILY 11/04/21 Levothyroxine [Synthroid] 75 mcg PO 1100 11/04/21 Lidocaine 1 patch TOP PRN PRN 11/04/21 Mineral Oil [Mineral Oil Enema] [address] PRN PRN 11/04/21 Senna [Senokot] 17.2 mg PO BID 11/04/21 Senna [Senokot] 17.2 mg PO PRN PRN 11/04/21 polyethylene glycoL 3350 [Miralax] 17 gm PO PRN PRN 11/04/21
[2021-11-06] MEDS: LEVOTHYROXINE 75 MCG TABLET PO SCH (18:29)
[2021-11-06] MEDS ORDERED: PRAZOSIN 1 MG CAPSULE PO SCH (21:00)
[2021-11-06] MEDS: QUEtiapine 25 MG TABLET PO SCH (21:03)
[2021-11-07 05:55] LABS: BASOPHILS % (AUTO) 0.5 %; EOSINOPHILS # (AUTO) 0.4 10^3/uL (0.0-0.7); EOSINOPHILS % (AUTO) 4.5 %; HCT - HEMATOCRIT 23.5 % (37.0-47.0); HGB - HEMOGLOBIN 7.5 g/dL (12.0-16.0); LYMPHOCYTES # (AUTO) 1.3 10^3/uL (1.5-3.5); LYMPHOCYTES % (AUTO) 15.9 %; MEAN CORPUSCULAR HEMOGLOBIN 30.4 pg (27.0-31.0); MEAN CORPUSCULAR HGB CONC 31.9 g/dL (32.0-36.0); MEAN CORPUSCULAR VOLUME 95.1 fL (81.0-99.0); MEAN PLATELET VOLUME 10.3 fL (7.9-10.8); MONOCYTES # (AUTO) 0.6 10^3/uL (0.0-1.0); MONOCYTES % (AUTO) 7.4 %; NEUTROPHILS # (AUTO) 5.7 10^3/uL (1.5-6.6); NEUTROPHILS % (AUTO) 71.4 %; PLT - PLATELET COUNT 257 10^3/uL (130-450); RED BLOOD COUNT 2.47 10^6/uL (4.20-5.40); RED CELL DISTRIBUTION WIDTH 14.2 % (12.0-15.0); WHITE BLOOD COUNT 7.9 x10^3/uL (4.8-10.8)
[2021-11-07 06:03] LABS: CALCIUM 8.6 mg/dL (8.5-10.3); CREATININE 0.9 mg/dL (0.4-1.0); POTASSIUM 3.5 mmol/L (3.5-5.0)
[2021-11-07] MEDS: LEVOTHYROXINE 75 MCG TABLET PO SCH (06:22)
[2021-11-07] MEDS: PANTOPRAZOLE 40 MG TABLET PO SCH (06:23)
[2021-11-07] MEDS: ONDANSETRON ODT 4 MG TABLET TL SCH ×2 (06:23→11:21)
[2021-11-07] MEDS ORDERED: FERROUS GLUCONATE 324 MG TABLET PO SCH (08:00)
[2021-11-07] MEDS ORDERED: MULTIVITAMIN W/MINERALS TABLET PO SCH (08:00)
--- NOTE | 2021-11-07 08:06 | PROVIDER PROGRESS NOTE ---
Assessment/Plan - Current Meds Current Meds: Current Medications Generic Name Dose Route Start Last Admin Trade Name Anne PRN Reason Stop Dose Admin Levothyroxine Sodium 75 mcg 11/06/21 19:00 11/07/21 06:22 Levothyroxine 75 Mcg Tablet PO 75 mcg QDAC COREY Administration Ondansetron HCl 4 mg 11/06/21 09:27 11/07/21 06:23 Ondansetron Odt 4 Mg Tablet TL 4 mg Q6HR COREY Administration Pantoprazole Sodium 40 mg 11/06/21 10:00 11/07/21 06:23 Pantoprazole 40 Mg Tablet PO 40 mg QDAC COREY Administration Prazosin HCl 2 mg 11/06/21 21:00 11/06/21 21:07 Prazosin 1 Mg Capsule PO Not Given QPM COREY Quetiapine Fumarate 25 mg 11/06/21 21:00 11/06/21 21:03 Quetiapine 25 Mg Tablet PO 25 mg BID COREY Administration - Lab Result Fish Bone Diagrams: 11/07/21 05:30 11/07/21 05:30 Objective Vital Signs: Vital Signs - 24 hr 11/06/21 11/07/21 09:44 03:38 Temperature 36.6 C 36.5 C Heart Rate [ 52 L 58 L Brachial] Respiratory 19 20 Rate Blood Pressure 140/44 H [Left Brachial artery] Blood Pressure 152/82 H [Right Brachial artery] O2 Saturation 98 94 Oxygen O2 Source Room air I&O (Last 24 Hrs): Intake and Output Totals x24h 11/05/21 11/06/21 11/07/21 23:59 23:59 23:59 Intake Total 1217.597 557 50 Output Total 200 675 200 Balance 1017.597 -118 -150 - Results Results: Laboratory Results WBC 7.9 x10^3/uL (4.8-10.8) 11/07/21 05:30 RBC 2.47 10^6/uL (4.20-5.40) L 11/07/21 05:30 Hgb 7.5 g/dL (12.0-16.0) L 11/07/21 05:30 Hct 23.5 % (37.0-47.0) L 11/07/21 05:30 MCV 95.1 fL (81.0-99.0) 11/07/21 05:30 MCH 30.4 pg (27.0-31.0) 11/07/21 05:30 MCHC 31.9 g/dL (32.0-36.0) L 11/07/21 05:30 RDW 14.2 % (12.0-15.0) 11/07/21 05:30 Plt Count 257 10^3/uL (130-450) 11/07/21 05:30 MPV 10.3 fL (7.9-10.8) 11/07/21 05:30 Neut # (Auto) 5.7 10^3/uL (1.5-6.6) 11/07/21 05:30 Lymph # (Auto) 1.3 10^3/uL (1.5-3.5) L 11/07/21 05:30 [place] # (Auto) 0.6 10^3/uL (0.0-1.0) 11/07/21 05:30 Eos # (Auto) 0.4 10^3/uL (0.0-0.7) 11/07/21 05:30 Baso # (Auto) 0.0 10^3/uL (0.0-0.1) 11/07/21 05:30 Absolute Nucleated RBC 0.00 x10^3/uL 11/07/21 05:30 Nucleated RBC % 0.0 /100WBC 11/07/21 05:30 PT 13.0 secs (9.9-12.6) H 11/04/21 02:01 INR 1.2 (0.8-1.2) 11/04/21 02:01 Sodium 145 mmol/L (135-145) 11/07/21 05:30 Potassium 3.5 mmol/L (3.5-5.0) 11/07/21 05:30 Chloride 111 mmol/L (101-111) 11/07/21 05:30 Carbon Dioxide 25 mmol/L (21-32) 11/07/21 05:30 Anion Gap 9.0 (6-13) 11/07/21 05:30 BUN 25 mg/dL (6-20) H 11/07/21 05:30 Creatinine 0.9 mg/dL (0.4-1.0) 11/07/21 05:30 Estimated GFR (MDRD) 59 (>89) L 11/07/21 05:30 Glucose 94 mg/dL (70-100) 11/07/21 05:30 Lactic Acid 1.2 mmol/L (0.5-2.2) 11/04/21 05:19 Calcium 8.6 mg/dL (8.5-10.3) 11/07/21 05:30 Magnesium 2.1 mg/dL (1.7-2.8) 11/04/21 02:01 Total Bilirubin 0.9 mg/dL (0.2-1.0) 11/04/21 02:01 AST 15 IU/L (10-42) 11/04/21 02:01 ALT 14 IU/L (10-60) 11/04/21 02:01 Alkaline Phosphatase 44 IU/L (42-121) 11/04/21 02:01 Troponin I High Sens 8.0 ng/L (2.3-14.8) 11/04/21 05:19 B-Natriuretic Peptide 105 pg/mL (5-100) H 11/04/21 02:01 Total Protein 5.1 g/dL (6.7-8.2) L 11/04/21 02:01 Albumin 2.9 g/dL (3.2-5.5) L 11/04/21 02:01 Globulin 2.2 g/dL (2.1-4.2) 11/04/21 02:01 Albumin/Globulin Ratio 1.3 (1.0-2.2) 11/04/21 02:01 Lipase 61 U/L (22-51) H 11/04/21 02:01 TSH 1.13 uIU/mL (0.34-5.60) 11/04/21 05:19 Urine Color YELLOW 11/04/21 14:33 Urine Clarity CLEAR (CLEAR) 11/04/21 14:33 Urine pH 5.5 PH (5.0-7.5) 11/04/21 14:33 Ur Specific [place] 1.015 (1.002-1.030) 11/04/21 14:33 Urine Protein NEGATIVE mg/dL (NEGATIVE) 11/04/21 14:33 Urine Glucose (UA) NEGATIVE mg/dL (NEGATIVE) 11/04/21 14:33 Urine Ketones NEGATIVE mg/dL (NEGATIVE) 11/04/21 14:33 Urine Occult Blood MODERATE (NEGATIVE) H 11/04/21 14:33 Urine Nitrite NEGATIVE (NEGATIVE) 11/04/21 14:33 Urine Bilirubin NEGATIVE (NEGATIVE) 11/04/21 14:33 Urine Urobilinogen 0.2 (NORMAL) E.U./dL (NORMAL) 11/04/21 14:33 Ur Leukocyte Esterase TRACE (NEGATIVE) H 11/04/21 14:33 Urine RBC 0-5 /HPF (0-5) 11/04/21 14:33 Urine WBC 0-3 /HPF (0-5) 11/04/21 14:33 Ur Squamous Epith Cells RARE Squamous (<= Few) 11/04/21 14:33 Urine Bacteria Rare /HPF (None Seen) 11/04/21 14:33 Urine Culture Comments INDICATED 11/04/21 14:33 SARS-CoV-2 (PCR) NOT DETECTED 11/04/21 03:30 Blood Type B NEGATIVE 11/04/21 02:01 Antibody Screen NEGATIVE 11/04/21 02:01 Crossmatch IS Only See Detail 11/04/21 02:01
[2021-11-07] MEDS: QUEtiapine 25 MG TABLET PO SCH (08:55)
[2021-11-07] MEDS ORDERED: CETIRIZINE 10 MG TABLET PO SCH (09:00)
--- NOTE | 2021-11-07 10:52 | DISCHARGE SUMMARY ---
Discharge Summary Admit Date: 11/04/21 Discharge Date: 11/07/21 Discharging Provider: Karina Wiley Primary Care Provider: Lizett Condition at Discharge: Serious Discharge Disposition: 03 SNF DC/Xfer Discharge Facility Name: [facility] - DIAGNOSES Admission Diagnoses: Hypotension due to blood loss Pulmonary edema Hematemesis of fresh blood Anemia due to GI blood loss Elevated lactic acid level Acute kidney injury History of hypertension Heart murmur Hypothyroidism Dementia Discharge Diagnoses with Status of Each Condition: Hypotension due to blood loss: Acute. Status post transfusion of 1 unit of blood. Resolved Pulmonary edema Hematemesis of fresh blood Anemia due to GI blood loss: Hemoglobin 7.5. DPOA instructed no further intervention or work up. Elevated lactic acid level: Acute. Resolved Acute kidney injury: Resolved History of hypertension: Chronic. Continue home medication Heart murmur: Could nnot evaluate further due to lack of echo. Patient also comfort measures. Hypothyroidism: Chronic. Stable Dementia: At baseline - HPI History of Present Illness: This is an 85-year-old white female with a history of advanced dementia, hypertension and upper GI bleed in 2019. She lives at [facility]. The entire history is obtained from the ED provider who obtained it from EMS personnel. Today the patient was walking at her shelter and slumped against the wall and went down but did not have complete syncope. She then had emesis of bright red blood. Ambulance was called. At the scene, her BP was 112/60 and HR was 78. In the ED, her BP was 96/54 with HR 80 but BP dropped to 78/48. IV saline was started and BP improved to 105/55. She had 2 more episodes of vomiting blood in the ED. Zofran iv was given as well as iv Protonix 80 mg. Her DPOA was contacted and confirmed her POLST, which states DNR and medical management with focus on comfort. No endoscopy was wanted, but blood transfusion would be OK. In 2019, she had presented with coffee ground emesis and no endoscopy was desired then either and she was treated with PPI empirically for a presumed gastric ulcer and her daily aspirin was stopped. Today in the ED, her abdomen was soft and her admission Hgb was 7.8, compared to 6 mos ago when Hgb was 11.8. She has been typed and screened and ready for transfusion. She is being admitted to the Hospitalist service to manage her hematemesis and acute GI blood loss anemia. - HOSPITAL COURSE Hospital Course: Patient was admitted on 11/04/21 after a syncopal episode from GI bleed. She had been experiencing hematemesis at the shelter facility. At presentation hemoglobin was 7.8. The patient is comfort measures and discussing with the patient's DPOA, it was maintained that no intervention should be done. They declined colonoscopy. Was agreeable to blood transfusion. As a result she was administered 1 unit of packed red blood cells. Over the cause of her hospital stay patient did not experience any further GI bleeding. As a result on 11/07/2021 the patient was stable stable to be discharged back to her facility. Hospice care was consulted but after evaluation it was determined she is not a candidate for [facility] Palliative care will be consulted to follow her in the outpatient setting. She was back to her baselineAt the time of discharge. She was pleasant to discuss with on the day of discharge and was eager to go back "home" - ALLERGIES Allergies/Adverse Reactions: Allergies Allergy/AdvReac Type Severity Reaction Status Date / Time No Known Drug Allergies Allergy Verified 11/04/21 01:18 - MEDICATIONS Home Medications: Ambulatory Orders Medication Instructions Recorded Confirmed Acetaminophen 650 mg PO TID 05/09/19 11/04/21 Cetirizine HCl 5 mg PO QPM 05/09/19 11/04/21 Ferrous Gluconate 240 mg PO QDDINNER 05/09/19 11/04/21 Multivitamin W/Minerals [Theragran 1 tab PO DAILY 05/09/19 11/04/21 M] Potassium Chloride 20 meq PO 1400 05/09/19 11/04/21 Prazosin HCl 2 mg PO DAILY 05/09/19 11/04/21 Tramadol HCl 50 mg PO 0900,1400 05/09/19 11/04/21 Ascorbic Acid 500 mg PO QDDINNER 11/04/21 11/04/21 Bisacodyl Supp [Dulcolax Supp] 10 mg [place] PRN PRN 11/04/21 11/04/21 Calcium Carbonate [Tums (Calcium 1,000 mg PO 0900,1400 11/04/21 11/04/21 Carbonate 500mg)] Cholecalciferol [Vitamin D3] 50 mcg PO DAILY 11/04/21 11/04/21 Levothyroxine [Synthroid] 75 mcg PO 1100 11/04/21 11/04/21 Lidocaine 1 patch TOP PRN PRN 11/04/21 11/04/21 Mineral Oil [Mineral Oil Enema] 1 unit [place] PRN PRN 11/04/21 11/04/21 Senna [Senokot] 17.2 mg PO BID 11/04/21 11/04/21 Senna [Senokot] 17.2 mg PO PRN PRN 11/04/21 11/04/21 polyethylene glycoL 3350 [Miralax] 17 gm PO PRN PRN 11/04/21 11/04/21 - PHYSICAL EXAM AT DISCHARGE General Appearance: positive: No acute distress, Alert Eyes Bilateral: positive: PERRL, EOMI ENT: positive: No signs of dehydration Neck: positive: No JVD, Trachea midline Respiratory: positive: Chest non-tender, No respiratory distress, Breath sounds nml. negative: Wheezes, Rales, Rhonchi Cardiovascular: positive: No murmur, Bradycardia Abdomen: positive: Non-tender, No organomegaly, Nml bowel sounds, No distention. negative: Guarding, Rebound Back: positive: Nml inspection Skin: positive: Color nml, No rash Extremities: positive: Non-tender, Full ROM, Nml appearance, No pedal edema Neurologic/Psychiatric: positive: Oriented x3, Mood/affect nml - LABS Result Diagrams: 11/07/21 05:30 11/07/21 05:30 - FOLLOW UP Follow Up: Palliative care - TIME SPENT Time Spent in Discharge (Minutes): 20
--- NOTE | 2021-11-07 10:58 | Discharge Plan ---
"Discharge Plan for SNF / [facility] - Discharge Plan And Transition Orders Problem Reviewed?: Yes Disposition: 03 SNF DC/Xfer Condition: Serious Allergies and Adverse Reactions: Allergies Allergy/AdvReac Type Severity Reaction Status Date / Time No Known Drug Allergies Allergy Verified 11/04/21 01:18 Health Concerns: Patient was admitted on 11/04/21 after a syncopal episode from GI bleed. She had been experiencing [facility]emesis [facility] the [facility] facility. At presentation hemoglobin was 7.8. The patient is comfort measures and discussing with the patient's DPOA, it was maintained that no intervention should be done. They declined colonoscopy. Was agreeable to blood transfusion. As a result she was administered 1 unit of packed red blood cells. Over the cause of her hospital stay patient did not experience any further GI bleeding. As a result on 11/07/2021 the patient was stable stable to be discharged back to her facility. Palliative care will be consulted to follow her in the outpatient setting. - SNF / ALISIA Transition Orders Admit to (Facility): [facility] Discharge Diagnosis: Dementia: At baseline Hematemesis: Resolved History of hypertension Hypothyroidism Medicare Certification Statement: I certify that Post Hospital fci care is medically necessary on a continuing basis for any of the conditions for which she/he is receiving care during hospitalization. Notify PCP of admission and forward orders to primary provider for signature. Weight on admission and: Weekly Other Notification Orders: Call PCP immediately if patient develops dyspnea, chest pain/tightness or edema. Additional Bowel Program Orders: If no BM after 2 days, nurse may give M.O.M. 30ml PO PRN and/or ducolax Supp 1 MO and/or PJ 250mg P.O., and/or senna 1-2 tabs PO. On day 3 nurse may give repeat above order until residents constipation is resolved. Medication Orders: PLEASE REFER TO THE DISCHARGE MEDICATION LIST. - Diet Type: Geriatric Texture: Regular Liquids: Thin - Therapies | Activity Activity: Activity as Tolerated Weight Bearing: Full Weight Follow Up: Palliative care in the outpatient setting."
[2021-11-07 12:22] VITALS: BP 149/54
[2021-11-09] MEDS ORDERED: LEVOTHYROXINE 100 MCG VIAL IVP SCH (06:00)
== END 2021-11-07 13:28 | DRG 378 ==
LOC: EDUNIT# → ED 01:11 → MS2 04:01
PROVIDERS: ADMIT Internal Medicine; ATTEND Internal Medicine
PROC: 30233N1 Transfusion of Nonautologous Red Blood Cells into Peripheral Vein, Percutaneous Approach (ICD-10-PCS; principal; 2021-11-04)
DX: K92.2 Gastrointestinal hemorrhage, unspecified (principal); K25.4 Chronic or unspecified gastric ulcer with hemorrhage; D50.0 Iron deficiency anemia secondary to blood loss (chronic); J81.1 Chronic pulmonary edema; Z20.822 Contact with and (suspected) exposure to COVID-19; N17.9 Acute kidney failure, unspecified; D62 Acute posthemorrhagic anemia; N39.0 Urinary tract infection, site not specified; I95.89 Other hypotension; R74.02 Elevation of levels of lactic acid dehydrogenase [LDH]; I10 Essential (primary) hypertension; R01.1 Cardiac murmur, unspecified; E03.9 Hypothyroidism, unspecified; E11.9 Type 2 diabetes mellitus without complications; F03.90 Unspecified dementia, unspecified severity, without behavioral disturbance, psychotic disturbance, mood disturbance, and anxiety; Z66 Do not resuscitate; Z51.5 Encounter for palliative care; R63.0 Anorexia; Z68.25 Body mass index [BMI] 25.0-25.9, adult; B96.20 Unspecified Escherichia coli [E. coli] as the cause of diseases classified elsewhere
CPT/HCPCS: 36415; 71045; 80048; 80053; 81001; 83605; 83690; 83735; 83880; 84443; 84484; 85014; 85018; 85025; 85610; 86850; 86900; 86901; 86920; 87086; 87181; 87635; 93005; 96361; 96374; 96375; 96376; 99285; 99291; A6250; A9270; P9016; Q0162

== ENCOUNTER 2021-11-07 13:13 | Outpatient (CLI) | payer MEDICARE, MEDICAID | END 2021-11-07 13:14 | disposition home or self-care (01) | LOC: EMS 13:13 | PROVIDERS: ATTEND Internal Medicine | DX: R41.0 Disorientation, unspecified (principal); D64.9 Anemia, unspecified; I10 Essential (primary) hypertension; K92.0 Hematemesis; Z51.5 Encounter for palliative care | CPT/HCPCS: A0425; A0428 ==

== ENCOUNTER 2023-06-03 19:58 | Outpatient (CLI) | payer MEDICARE | END 2023-06-03 19:59 | disposition short-term general hospital (02) | LOC: EMS 19:58 | DX: M25.551 Pain in right hip (principal); M79.604 Pain in right leg; W18.30XA Fall on same level, unspecified, initial encounter; Y92.091 Bathroom in other non-institutional residence as the place of occurrence of the external cause | CPT/HCPCS: A0425; A0427 ==